=== PATIENT | female | born 1930 | race Caucasian/White ===

== ENCOUNTER 2017-04-24 16:06 | Emergency (ER) | payer MEDICARE, OTHER ==
[2017-04-24 16:30] VITALS: BP 142/38
--- NOTE | 2017-04-24 16:36 | EDM.PDOC ---
ED HPI GENERAL MEDICAL PROBLEM - General Chief Complaint: Abdominal Pain Stated Complaint: POSSIBLE BLADDER INFECTION Time Seen by Provider: 04/24/17 16:23 Source of Information: Reports: Patient History Limitations: Reports: No Limitations - History of Present Illness INITIAL COMMENTS - FREE TEXT/NARRATIVE: Patientt stated onset of frequency/urgency with inability to void last night. Has not voided since last night. C/O Low back pain and LLQ pain, slight suprapubic area pain. Denies bloody urine. Onset: Sudden Onset Date: 04/23/17 Onset Time: 21:00 Duration: Hour(s):, Constant, Getting Worse, Recurring Location: Reports: Back Quality: Reports: Burning, Stabbing Severity: Moderate Improves with: Reports: None Worsens with: Reports: None Associated Symptoms: Reports: No Other Symptoms. Denies: Chest Pain, Cough, Diaphoresis, Fever/Chills, Nausea/Vomiting, Shortness of Breath, Weakness Left Lower Abdomen Pain Score (Numeric/FACES): 8 - Related Data Allergies Allergy/AdvReac Type Severity Reaction Status Date / Time No Known Allergies Allergy Verified 04/24/17 16:24 Home Meds: Home Meds Aspirin [Ecotrin] 325 mg PO BIDMEALS 11/14/15 [History] Calcium Carbonate/Vitamin D3 [Calcium 600 + Vit D 200] 1 each PO DAILY 11/14/15 [History] Citalopram [Celexa] 40 mg PO DAILY 11/14/15 [History] Docusate Sodium [Colace] 100 mg PO BEDTIME PRN 11/14/15 [History] Lisinopril 10 mg PO DAILY 11/14/15 [History] [place]-3/DHA/Epa/Fish Oil [[place]-3 Fish Oil 1,000 MG Sfgl] 1 cap PO DAILY [History] Omeprazole [Prilosec] 40 mg PO DAILY 11/14/15 [History] Oxybutynin 5 mg PO TID PRN 11/14/15 [History] Polyethylene Glycol [Polyox Wsr-301] 1 gm PO DAILY PRN 11/14/15 [History] chlordiazePOXIDE/Clidinium [Librax 5-2.5 MG] 1 cap PO DAILY PRN 11/14/15 [ History] traZODone 100 mg PO BEDTIME 11/14/15 [History] Acetaminophen [Tylenol] 325 mg PO Q4HR PRN #100 tab 11/21/15 [Rx] Hydrocodone/Acetaminophen [Hydrocodon-Acetaminophen 5-325] 1 tab PO Q4HR PRN # 40 tablet 11/21/15 [Rx] Past Medical History HEENT History: Reports: Cataract Cardiovascular History: Reports: Hypertension Gastrointestinal History: Reports: Irritable Bowel Syndrome Musculoskeletal History: Reports: Osteoarthritis - Past Surgical History HEENT Surgical History: Reports: Cataract Surgery GI Surgical History: Reports: Colon, Hernia, Inguinal Musculoskeletal Surgical History: Reports: Hip Replacement Social & Family History - Tobacco Use Smoking Status *Q: Never Smoker - Alcohol Use Days Per Week of Alcohol Use: 0 - Recreational Drug Use Recreational Drug Use: No ED ROS GENERAL - Review of Systems Review Of Systems: See Below Constitutional: Reports: No Symptoms, Fever, Chills, Weakness, Diaphoresis HEENT: Reports: No Symptoms Respiratory: Reports: No Symptoms. Denies: Shortness of Breath, Cough, Sputum Cardiovascular: Reports: No Symptoms. Denies: Chest Pain, Dyspnea on Exertion Endocrine: Reports: No Symptoms GI/Abdominal: Reports: Abdominal Pain. Denies: Constipation, Diarrhea, Hematochezia, Melena, Nausea, Vomiting : Reports: Dysuria, Frequency, Pain, Urgency. Denies: Flank Pain, Hematuria Musculoskeletal: Reports: Back Pain, Other (low back pain left more than right) Skin: Reports: No Symptoms Neurological: Reports: No Symptoms Psychiatric: Reports: No Symptoms Hematologic/Lymphatic: Reports: No Symptoms Immunologic: Reports: No Symptoms ED EXAM, GI/ABD - Physical Exam Exam: See Below Exam Limited By: No Limitations General Appearance: Alert, WD/WN, No Apparent Distress Eyes: Bilateral: Normal Appearance, EOMI Ears: Normal External Exam, Normal Canal Nose: Normal Inspection Throat/Mouth: Normal Inspection, Normal Oropharynx Head: Atraumatic, Normocephalic Neck: Normal Inspection Respiratory/Chest: No Respiratory Distress, Lungs Clear, Normal Breath Sounds Cardiovascular: Normal Peripheral Pulses, Regular Rate, Rhythm, No Murmur GI/Abdominal Exam: Normal Bowel Sounds, Soft, No Organomegaly, No Distention, Other (mildly tender suprapubic and more tender LLQ) (Female) Exam: Deferred Rectal (Female) Exam: Deferred Back Exam: Normal Inspection, Paraspinal Tenderness, Other (Low back tenderness with percussion left more than right) Extremities: Normal Inspection, Normal Range of Motion Neurological: Alert, Oriented, Normal Cognition, Normal Gait, Other (walks with walker) Psychiatric: Normal Affect, Normal Mood Skin Exam: Warm, Dry, Intact, Normal Color, No Rash Lymphatic: No Adenopathy ED ABDOMINAL/GI PROCEDURES - Additional/Other Procedure(s) Procedure(s) (Free Text): Patient unable to void and states no urination since last night so straight cath done to empty bladder. Urine was pinkish red with no cloudiness or odor. Only 30 cc or so urine obtained with straight cath. Course - Vital Signs Last Recorded V/S: Last Vital Signs Temp 36.6 C 04/24/17 16:07 Pulse 62 04/24/17 16:07 Resp 16 04/24/17 16:07 BP 142/38 H 04/24/17 16:07 Pulse Ox - Orders/Labs/Meds Orders: Active Orders 24 hr Category Date Time Status Urinary Catheter Assessment [RC] ASDIRECTED Care 04/24/17 16:49 Active Urinary Catheter Insertion [Insert Urinary Catheter] [ Care 04/24/17 16:40 Ordered OM.PC] Q24H Abdomen Pelvis wo Cont [CT] Stat Exams 04/24/17 16:45 Taken Labs: Laboratory Tests 04/24/17 Range/Units 16:45 Urine Color Red H (YELLOW) Urine Appearance Turbid H (CLEAR) Urine pH 7.0 (5.0-8.0) Ur Specific [place] 1.020 Urine Protein >=300 H (NEGATIVE) mg/dL Urine Glucose (UA) Negative (NEGATIVE) mg/dL Urine Ketones Negative (NEGATIVE) mg/dL Urine Occult Blood Large H (NEGATIVE) Urine Nitrite Negative (NEGATIVE) Urine Bilirubin Negative (NEGATIVE) Urine Urobilinogen 0.2 (0.2) EU/dL Ur Leukocyte Esterase Small H (NEGATIVE) Urine RBC Packed (NOT SEEN) /HPF Urine Red Cell Clumps Present Urine WBC 0-5 (NOT SEEN) /HPF Ur Squamous Epith Cells Rare (NEGATIVE) /HPF Ur Renal Epithelial Cell Few H (NEGATIVE) /HPF Amorphous Sediment Few Urine Bacteria Rare (NEGATIVE) /HPF Urine Mucus Not seen (NEGATIVE) /LPF Meds: Medications Discontinued Medications Generic Name Dose Route Start Last Admin Trade Name Freq PRN Reason Stop Dose Admin Trimethoprim/Sulfamethoxazole 2 packet 04/24/17 19:18 04/24/17 19:35 Take Home: Sulfameth/Trimet 800-160mg, 2 Pack PO 04/24/17 19:19 2 packet ONETIME ONE Administration - Radiology Interpretation CT Results Date: 04/24/17 (CT showed bilar renal staghhorn caluli, left greater than right, no visualized hydronephrosis or ureteral calculi. Non specific scattered retroperitoneal fat stranding.) Departure - Departure Time of Disposition: 19:57 Disposition: Home, Self-Care 01 Condition: Good Clinical Impression: UTI (urinary tract infection) Qualifiers: Urinary tract infection type: acute cystitis Hematuria presence: with hematuria Qualified Code(s): N30.01 - Acute cystitis with hematuria - Discharge Information Instructions: Urinary Tract Infection, Adult, Laog-da-Cuto Referrals: Yesi Girard COAL CUTTER [Primary Care Provider] - Forms: ED Department Discharge Additional Instructions: Drink plenty of liquids. Take antibiotic twice daily. Use tylenol every 4-6 hours for pain. Return to ER if the pain gets worse, if you develop a fever, nausea or vomiting or are unable to urinate. See your regular doctor wednesday for follow up. - My Orders Last 24 Hours: My Active Orders 04/24/17 16:40 Urinary Catheter Insertion [Insert Urinary Catheter] [OM.PC] Q24H 04/24/17 16:45 Abdomen Pelvis wo Cont [CT] Stat 04/24/17 16:49 Urinary Catheter Assessment [RC] ASDIRECTED - Assessment/Plan Last 24 Hours: My Active Orders 04/24/17 16:40 Urinary Catheter Insertion [Insert Urinary Catheter] [OM.PC] Q24H 04/24/17 16:45 Abdomen Pelvis wo Cont [CT] Stat 04/24/17 16:49 Urinary Catheter Assessment [RC] ASDIRECTED
[2017-04-24] MEDS ORDERED: Take Home: Sulfamethoxazole/Trimethoprim 800-160 MG Tab, 2 Tab Pack PO ONE (19:18)
== END 2017-04-24 19:45 | disposition home or self-care (01) ==
LOC: VM.ED 16:06
DX: N30.01 Acute cystitis with hematuria (principal); I10 Essential (primary) hypertension; M19.90 Unspecified osteoarthritis, unspecified site; Z96.649 Presence of unspecified artificial hip joint; Z98.49 Cataract extraction status, unspecified eye; Z98.890 Other specified postprocedural states; Z79.899 Other long term (current) drug therapy
CPT/HCPCS: 74176; 81001; 99283; 99284; A9270

== ENCOUNTER 2018-06-15 11:02 | Emergency (ER) | payer MEDICARE, OTHER ==
[2018-06-15 11:40] VITALS: BP 145/49
--- NOTE | 2018-06-15 12:45 | EDM.PDOC ---
ED HPI GENERAL MEDICAL PROBLEM - General Chief Complaint: Laceration Source of Information: Reports: Patient, EMS History Limitations: Reports: No Limitations Right Lower Leg Pain Score (Numeric/FACES): 5 - Related Data Allergies Allergy/AdvReac Type Severity Reaction Status Date / Time aspirin AdvReac Nausea Verified 06/15/18 11:40 Home Meds: Home Meds Calcium Carbonate/Vitamin D3 [Calcium 600 + Vit D 200] 1 each PO DAILY 11/14/15 [History] Citalopram [Celexa] 40 mg PO DAILY 11/14/15 [History] Docusate Sodium [Colace] 100 mg PO BEDTIME PRN 11/14/15 [History] [place]-3/DHA/Epa/Fish Oil [[place]-3 Fish Oil 1,000 MG Sfgl] 1 cap PO DAILY [History] Oxybutynin 5 mg PO DAILY 11/14/15 [History] Polyethylene Glycol [Polyox Wsr-301] 1 gm PO DAILY PRN 11/14/15 [History] chlordiazePOXIDE/Clidinium [Librax 5-2.5 MG] 1 cap PO DAILY PRN 11/14/15 [ History] traZODone 100 mg PO BEDTIME 11/14/15 [History] Acetaminophen [Tylenol] 325 mg PO Q4HR PRN #100 tab 11/21/15 [Rx] Past Medical History HEENT History: Reports: Cataract Cardiovascular History: Reports: Hypertension Gastrointestinal History: Reports: Irritable Bowel Syndrome Musculoskeletal History: Reports: Osteoarthritis Psychiatric History: Reports: Depression - Past Surgical History HEENT Surgical History: Reports: Cataract Surgery GI Surgical History: Reports: Colon, Hernia, Inguinal Female Surgical History: Reports: Hysterectomy, Other (See Below) Other Female Surgeries/Procedures: ?partial colectomy Musculoskeletal Surgical History: Reports: Hip Replacement Social & Family History - Family History Family Medical History: Noncontributory - Tobacco Use Smoking Status *Q: Never Smoker - Caffeine Use Caffeine Use: Reports: Coffee - Recreational Drug Use Recreational Drug Use: No Course - Vital Signs Last Recorded V/S: Last Vital Signs Temp 36.4 C 06/15/18 11:36 Pulse 62 06/15/18 11:36 Resp 18 06/15/18 11:36 BP 145/49 H 06/15/18 11:36 Pulse Ox 95 06/15/18 11:36 Departure - Discharge Information Instructions: Skin Tear Care, Eegb-da-Oeyp, Laceration Care, Adult Forms: ED Department Discharge Additional Instructions: Keep area dry for 48 hours. Return to ER or follow-up in ER if increased redness, swelling, or discharge.
--- NOTE | 2018-06-15 18:24 | EDM.PDOC ---
ED HPI GENERAL MEDICAL PROBLEM - General Chief Complaint: Laceration Time Seen by Provider: 06/15/18 11:30 Source of Information: Reports: Patient History Limitations: Reports: No Limitations - History of Present Illness INITIAL COMMENTS - FREE TEXT/NARRATIVE: Pt. presents to ER with complaints of a laceration to R anterior lower leg. She states that she thinks she cut it on her chair. Denies any other injury. She is not anticoagulated. Tetanus is UTD. Right Lower Leg Pain Score (Numeric/FACES): 5 - Related Data Allergies Allergy/AdvReac Type Severity Reaction Status Date / Time aspirin AdvReac Nausea Verified 06/15/18 11:40 Home Meds: Home Meds Calcium Carbonate/Vitamin D3 [Calcium 600 + Vit D 200] 1 each PO DAILY 11/14/15 [History] Citalopram [Celexa] 40 mg PO DAILY 11/14/15 [History] Docusate Sodium [Colace] 100 mg PO BEDTIME PRN 11/14/15 [History] [place]-3/DHA/Epa/Fish Oil [[place]-3 Fish Oil 1,000 MG Sfgl] 1 cap PO DAILY [History] Oxybutynin 5 mg PO DAILY 11/14/15 [History] Polyethylene Glycol [Polyox Wsr-301] 1 gm PO DAILY PRN 11/14/15 [History] chlordiazePOXIDE/Clidinium [Librax 5-2.5 MG] 1 cap PO DAILY PRN 11/14/15 [ History] traZODone 100 mg PO BEDTIME 11/14/15 [History] Acetaminophen [Tylenol] 325 mg PO Q4HR PRN #100 tab 11/21/15 [Rx] Past Medical History HEENT History: Reports: Cataract Cardiovascular History: Reports: Hypertension Gastrointestinal History: Reports: Irritable Bowel Syndrome Musculoskeletal History: Reports: Osteoarthritis Psychiatric History: Reports: Depression - Past Surgical History HEENT Surgical History: Reports: Cataract Surgery GI Surgical History: Reports: Colon, Hernia, Inguinal Female Surgical History: Reports: Hysterectomy, Other (See Below) Other Female Surgeries/Procedures: ?partial colectomy Musculoskeletal Surgical History: Reports: Hip Replacement Social & Family History - Family History Family Medical History: Noncontributory - Tobacco Use Smoking Status *Q: Never Smoker - Caffeine Use Caffeine Use: Reports: Coffee - Recreational Drug Use Recreational Drug Use: No ED ROS GENERAL - Review of Systems Review Of Systems: ROS reveals no pertinent complaints other than HPI. Musculoskeletal: Reports: Leg Pain ED EXAM, GENERAL - Physical Exam Exam: See Below Exam Limited By: No Limitations General Appearance: Alert, WD/WN, No Apparent Distress Extremities: Other (5 cm crescent shaped laceration to R lower leg) ED GENERAL MEDICAL PROCEDURES - Additional/Other Procedure(s) Other (Free Text) Procedure(s): 5 cm laceration, cleansed with NS and chlorhexidine. Skin was closed with dermabond. Course - Vital Signs Last Recorded V/S: Last Vital Signs Temp 36.4 C 06/15/18 11:36 Pulse 62 06/15/18 11:36 Resp 18 06/15/18 11:36 BP 145/49 H 06/15/18 11:36 Pulse Ox 95 06/15/18 11:36 Departure - Departure Time of Disposition: 12:46 Disposition: Home, Self-Care 01 Clinical Impression: Laceration - Discharge Information Instructions: Skin Tear Care, [id number], Laceration Care, Adult Referrals: Adeline Caicedo CAR RIDER [Primary Care Provider] - Forms: ED Department Discharge Additional Instructions: Keep area dry for 48 hours. Return to ER or follow-up in ER if increased redness, swelling, or discharge.
== END 2018-06-15 12:46 | disposition home or self-care (01) ==
LOC: VM.ED 11:02
DX: S81.811A Laceration without foreign body, right lower leg, initial encounter (principal); I10 Essential (primary) hypertension; Z88.8 Allergy status to other drugs, medicaments and biological substances; Z79.899 Other long term (current) drug therapy; W22.8XXA Striking against or struck by other objects, initial encounter
CPT/HCPCS: 12002; 99283; 99283-GF-25

== ENCOUNTER 2019-02-10 11:05 | Emergency (ER) | payer MEDICARE, OTHER ==
[2019-02-10] MEDS ORDERED: Lidocaine 1% 30 ML SDV INJECT ONE (11:17)
[2019-02-10 11:22] VITALS: BP 95/62
--- NOTE | 2019-02-10 12:01 | CR ---
[id number] RAD/RAD Elbow Right 3V Min Exam: RAD Elbow Right 3V Min Indication:FALL,STUCK ELBOW,11 CM LACERATION. Comparison: No prior imaging for comparison. Discussion: Large soft tissue laceration along the posterior aspect of the forearm and elbow. Numerous hyperdense foci within the remaining soft tissues at the laceration site are likely foreign bodies. No fracture or dislocation. Advanced osteoarthritis of the radiocapitellar and ulnotrochlear articulations, including numerous osteochondral bodies throughout the joint space. Impression: As above. Joaquin Gastelum MD 02/10/19 [id number] Thank you for allowing us to participate in the care of your patient.
[2019-02-10] MEDS ORDERED: Acetaminophen/HYDROcodone 325-5 MG Tab PO ONE (12:08)
--- NOTE | 2019-02-10 15:03 | EDM.PDOC ---
ED HPI GENERAL MEDICAL PROBLEM - General Chief Complaint: Upper Extremity Injury/Pain Stated Complaint: fall, elbow/forearm injury Time Seen by Provider: 02/10/19 11:05 Source of Information: Reports: Patient, EMS History Limitations: Reports: No Limitations - History of Present Illness INITIAL COMMENTS - FREE TEXT/NARRATIVE: Pt. states that she "lost control" of her walker and feel, landing on her R elbow and sustaining a severe laceration. Pt. states that she did not strike her head. No neck pain. She states that her discomfort is isolated to her R elbow. Denies any numbness/tingling to the extremity. She states that her tetanus is UTD. Pt. states that she lives in [facility] by herself. She states that she was walking [facility] [employer] when the accident happened. Onset: Today Onset Date: 02/10/19 Location: Reports: Upper Extremity, Right Quality: Reports: Burning, Sharp, Throbbing Improves with: Reports: Rest Worsens with: Reports: Movement Right Arm Pain Score (Numeric/FACES): 3 - Related Data Allergies Allergy/AdvReac Type Severity Reaction Status Date / Time aspirin AdvReac Nausea Verified 06/15/18 11:40 Home Meds: Home Meds Calcium Carbonate/Vitamin D3 [Calcium 600 + Vit D 200] 1 each PO DAILY 11/14/15 [History] Citalopram [Celexa] 40 mg PO DAILY 11/14/15 [History] Docusate Sodium [Colace] 100 mg PO BEDTIME PRN 11/14/15 [History] [place]-3/DHA/Epa/Fish Oil [[place]-3 Fish Oil 1,000 MG Sfgl] 1 cap PO DAILY [History] Oxybutynin 5 mg PO DAILY 11/14/15 [History] Polyethylene Glycol [Polyox Wsr-301] 1 gm PO DAILY PRN 11/14/15 [History] chlordiazePOXIDE/Clidinium [Librax 5-2.5 MG] 1 cap PO DAILY PRN 11/14/15 [ History] traZODone 100 mg PO BEDTIME 11/14/15 [History] Acetaminophen [Tylenol] 325 mg PO Q4HR PRN #100 tab 11/21/15 [Rx] Past Medical History HEENT History: Reports: Cataract Cardiovascular History: Reports: Hypertension Gastrointestinal History: Reports: Irritable Bowel Syndrome Musculoskeletal History: Reports: Osteoarthritis Psychiatric History: Reports: Depression - Past Surgical History HEENT Surgical History: Reports: Cataract Surgery GI Surgical History: Reports: Colon, Hernia, Inguinal Female Surgical History: Reports: Hysterectomy, Other (See Below) Other Female Surgeries/Procedures: ?partial colectomy Musculoskeletal Surgical History: Reports: Hip Replacement Social & Family History - Family History Family Medical History: Noncontributory - Tobacco Use Smoking Status *Q: Never Smoker - Caffeine Use Caffeine Use: Reports: Coffee Review of Systems - Review of Systems Review Of Systems: See Below Constitutional: Reports: No Symptoms Eyes: Reports: No Symptoms Ears: Reports: No Symptoms Nose: Reports: No Symptoms Mouth/Throat: Reports: No Symptoms Respiratory: Reports: No Symptoms Cardiovascular: Reports: No Symptoms GI/Abdominal: Reports: No Symptoms Genitourinary: Reports: No Symptoms Musculoskeletal: Reports: Other (approx. 11 cm to R elbow) Skin: Reports: No Symptoms Neurological: Reports: No Symptoms Psychiatric: Reports: No Symptoms ED EXAM, GENERAL - Physical Exam Exam: See Below Exam Limited By: No Limitations General Appearance: Alert, WD/WN, No Apparent Distress Nose: Normal Inspection, No Blood Throat/Mouth: Normal Inspection, Normal Lips, Normal Teeth, Normal Gums, Normal Oropharynx Head: Atraumatic, Normocephalic Neck: Normal Inspection, Supple, Non-Tender Respiratory/Chest: No Respiratory Distress, Lungs Clear, Normal Breath Sounds, No Accessory Muscle Use, Chest Non-Tender Cardiovascular: Normal Peripheral Pulses, Regular Rate, Rhythm, No Edema, No JVD Peripheral Pulses: 4+: Radial (L), Radial (R) GI/Abdominal: Soft, Non-Tender, No Organomegaly, No Distention (Female) Exam: Deferred Rectal (Female) Exam: Deferred Back Exam: Normal Inspection, Full Range of Motion Extremities: Other (11 cm laceration to R posterior elbow. It extends deeply into adipose tissue. No obvious bony deformity noted. Does not extend into deeper structures.) Neurological: Alert, Oriented, CN II-XII Intact, Normal Cognition, Normal Gait, Normal Reflexes Psychiatric: Normal Affect, Normal Mood Skin Exam: Warm, Dry, Intact, Normal Color, No Rash Lymphatic: No Adenopathy ED TRAUMA EXTREMITY PROCEDURES - Laceration/Wound Repair Right Posterior Elbow Lac/Wound Length In cm: 11 Appearance: Subcutaneous, Irregular, Heavily Contaminated Distal NVT: Neuro & Vascular Intact, No Tendon Injury Anesthetic Type: Local Local Anesthesia - Lidocaine (Xylocaine): 1% Plain Local Anesthetic Volume: Other (13) Skin Prep: Chlorhexidine (Hibiciens), Saline Saline Irrigation (cc's): 1,500 Exploration/Debridement/Repair: Wound Explored, Moderate Debridement, Foreign Material Removed, Multiple Flaps Aligned Closed With: [place] # of Sutures: 15 Suture Size: 3-0 # of Sutures: 2 Repaired With: Vicryl Sterile Dressing Applied: Nurse Progress/Comments: total of 1500ml of NS was used to irrigate the laceration. There was some debris in the laceration that was flushed out. 2 subcuticular sutures were placed and a total of 15 skin surinder was used to close the skin. Pt. tolerated the procedure well. Course - Vital Signs Last Recorded V/S: Last Vital Signs Temp 36.7 C 02/10/19 11:05 Pulse 60 02/10/19 11:05 Resp 20 02/10/19 11:05 BP 95/62 02/10/19 11:05 Pulse Ox 99 02/10/19 11:05 - Orders/Labs/Meds Meds: Medications Discontinued Medications Generic Name Dose Route Start Last Admin Trade Name Adam PRN Reason Stop Dose Admin Hydrocodone Bitart/Acetaminophen 1 tab 02/10/19 12:08 02/10/19 12:12 [place] 325-5 Mg PO 02/10/19 12:09 1 tab ONETIME ONE Administration Lidocaine HCl 30 ml 02/10/19 11:17 02/10/19 11:29 Xylocaine-Mpf 1% INJECT 02/10/19 11:18 30 ml ONETIME ONE Administration Departure - Departure Time of Disposition: 14:00 Disposition: Home, Self-Care 01 Clinical Impression: Laceration - Discharge Information Instructions: Acetaminophen; Hydrocodone tablets or capsules, Laceration Care, Adult, Cephalexin tablets or capsules Referrals: Adeline Caicedo NP [Primary Care Provider] - Forms: ED Department Discharge Additional Instructions: Keflex 500mg 1 tab 4 times daily for 10 days [place] 5/325mg 1 every 4-6 hours as needed for pain Return to ER Wednesday afternoon for a dressing change. Keep dressing on until then. Return to ER if you have increased pain, discharge, or redness to the area. - Assessment/Plan Plan: Keflex 500mg 1 tab 4 times daily for 10 days [place] 5/325mg 1 every 4-6 hours as needed for pain Return to ER Wednesday afternoon for a dressing change. Keep dressing on until then. Return to ER if you have increased pain, discharge, or redness to the area.
== END 2019-02-10 12:54 | disposition home or self-care (01) ==
LOC: VM.ED 11:05
DX: S51.011A Laceration without foreign body of right elbow, initial encounter (principal); I10 Essential (primary) hypertension; M19.90 Unspecified osteoarthritis, unspecified site; F32.9 Major depressive disorder, single episode, unspecified; Z98.49 Cataract extraction status, unspecified eye; Z90.710 Acquired absence of both cervix and uterus; Z79.899 Other long term (current) drug therapy; W19.XXXA Unspecified fall, initial encounter
CPT/HCPCS: 12004; 12034; 73080; 99283; 99284; A9270; J2001

== ENCOUNTER 2019-09-28 08:16 | Inpatient (IN) | payer MEDICARE, OTHER ==
[2019-09-28] MEDS ORDERED: traZODone 50 MG Tab PO SCH (20:00)
[2019-09-28] MEDS ORDERED: Oxybutynin 5 MG Tab PO SCH (20:00)
[2019-09-28] MEDS: traZODone 50 MG Tab PO SCH (20:03)
[2019-09-28] MEDS: Cephalexin 500 MG Cap PO SCH (20:03)
[2019-09-28] MEDS: Acetaminophen 325 MG Tab PO PRN (20:03)
[2019-09-29] MEDS ORDERED: Sertraline 100 MG Tab PO SCH (08:00)
[2019-09-29] MEDS: Sertraline 50 MG Tab PO SCH (08:28)
[2019-09-29] MEDS: Calcium Carbonate/Vitamin D3 1250 MG-200 Unit Tab PO SCH (08:28)
[2019-09-29] MEDS: Furosemide 20 MG Tab PO SCH (08:28)
[2019-09-29] MEDS: Cephalexin 500 MG Cap PO SCH ×2 (08:28→19:37)
[2019-09-29] MEDS: Mirabegron 25 MG Tab Extended Release PO SCH (12:24)
--- NOTE | 2019-09-29 15:01 | HP ---
CHIEF COMPLAINT: 1. Weakness. 2. Deconditioning. HISTORY OF PRESENT ILLNESS: This is an 89-year-old female patient who was seen at the [facility] a few days ago for what was thought to be a cellulitis, frequent falling, weakness. The patient was subsequently transferred to [facility] in [place] for further workup of her symptoms. While in the hospital, the patient was given vancomycin and Zosyn for her cellulitis, however, this was changed to p.o. cephalexin on date of discharge. No acute etiology was found for the patient's symptoms. However, she remained weak and deconditioned; therefore, she is being sent to the swing bed unit at [facility] for further rehab. PAST MEDICAL HISTORY: 1. Cataracts. 2. Hypertension. 3. Irritable bowel syndrome. 4. Osteoarthritis. 5. Depression. PAST SURGICAL HISTORY: 1. Cataract surgery. 2. Inguinal hernia repair. 3. Hysterectomy. 4. Partial colectomy. 5. Hip replacement. FAMILY HISTORY: Noncontributory. SOCIAL HISTORY: The patient does not smoke cigarettes or drink any alcohol. The patient is . REVIEW OF SYSTEMS: General: The patient reports weakness and feeling very fatigued. Pulmonary: The patient denies any shortness of breath or cough. Cardiovascular: Negative. Musculoskeletal: Weakness. Neurological: Negative. PHYSICAL EXAMINATION: General Presentation: The patient is alert and oriented. The patient is cooperative. Pulmonary: Clear to auscultation. Normal respiratory effort. Cardiovascular: Regular rate and rhythm. No murmur. Musculoskeletal: Active range of motion. Skin: Warm, dry, and intact. Neurologic: The patient is alert and oriented x3, sensation is intact. ADMITTING LABS: None. IMAGING STUDIES: None. ASSESSMENT: 1. Cellulitis. 2. Weakness. 3. Deconditioning. 4. Hypertension. 5. Irritable bowel syndrome. 6. Osteoarthritis. 7. Depression. PLAN: An 89-year-old patient with a past medical history of hypertension, irritable bowel syndrome, osteoarthritis, and depression, who is admitted to the swing bed unit at [facility] for continued treatment of cellulitis, weakness, deconditioning. The patient is a code 2. The patient does wish to be transferred to a higher level of care should the need arise. DVT prophylaxis with early ambulation. We will consult PT for her weakness and deconditioning. We will involve Case Management for discharge planning. We will continue the same medications at home without any changes. Note: This patient was seen and examined by me as an [facility] provider. TB: 09/28/2019 12:00:27 MODL: 09/28/2019 17:44:44 /[id number]
[2019-09-29] MEDS: Acetaminophen 325 MG Tab PO PRN (19:37)
[2019-09-29] MEDS: traZODone 50 MG Tab PO SCH (19:37)
[2019-09-30] MEDS: Furosemide 20 MG Tab PO SCH (08:36)
[2019-09-30] MEDS: Cephalexin 500 MG Cap PO SCH ×2 (08:36→19:58)
[2019-09-30] MEDS: Sertraline 50 MG Tab PO SCH (08:36)
[2019-09-30] MEDS: Calcium Carbonate/Vitamin D3 1250 MG-200 Unit Tab PO SCH (08:36)
[2019-09-30] MEDS: Mirabegron 25 MG Tab Extended Release PO SCH (08:37)
[2019-09-30] MEDS: traZODone 50 MG Tab PO SCH (19:58)
[2019-10-01] MEDS: Mirabegron 25 MG Tab Extended Release PO SCH (08:06)
[2019-10-01] MEDS: Furosemide 20 MG Tab PO SCH (08:06)
[2019-10-01] MEDS: Calcium Carbonate/Vitamin D3 1250 MG-200 Unit Tab PO SCH (08:06)
[2019-10-01] MEDS: Cephalexin 500 MG Cap PO SCH ×2 (08:06→20:44)
[2019-10-01] MEDS: Sertraline 50 MG Tab PO SCH (08:06)
[2019-10-01] MEDS: traZODone 50 MG Tab PO SCH (20:44)
[2019-10-02] MEDS: Calcium Carbonate/Vitamin D3 1250 MG-200 Unit Tab PO SCH (08:23)
[2019-10-02] MEDS: Polyethylene Glycol 3350 Powder 17 GM Packet PO PRN ×2 (08:23→19:46)
[2019-10-02] MEDS: Furosemide 20 MG Tab PO SCH (08:23)
[2019-10-02] MEDS: Sertraline 50 MG Tab PO SCH (08:23)
[2019-10-02] MEDS: Mirabegron 25 MG Tab Extended Release PO SCH (08:40)
[2019-10-02] MEDS: traZODone 50 MG Tab PO SCH (19:46)
[2019-10-03] MEDS: Mirabegron 25 MG Tab Extended Release PO SCH (07:36)
[2019-10-03] MEDS: Sertraline 50 MG Tab PO SCH (07:36)
[2019-10-03] MEDS: Calcium Carbonate/Vitamin D3 1250 MG-200 Unit Tab PO SCH (07:36)
[2019-10-03] MEDS: Furosemide 20 MG Tab PO SCH (07:36)
[2019-10-03] MEDS: traZODone 50 MG Tab PO SCH (19:31)
[2019-10-04] MEDS: Mirabegron 25 MG Tab Extended Release PO SCH (08:19)
[2019-10-04] MEDS: Sertraline 50 MG Tab PO SCH (08:19)
[2019-10-04] MEDS: Furosemide 20 MG Tab PO SCH (08:19)
[2019-10-04] MEDS: Calcium Carbonate/Vitamin D3 1250 MG-200 Unit Tab PO SCH (08:19)
[2019-10-04] MEDS: traZODone 50 MG Tab PO SCH (19:25)
[2019-10-04] MEDS: Polyethylene Glycol 3350 Powder 17 GM Packet PO PRN (20:27)
[2019-10-05] MEDS: Mirabegron 25 MG Tab Extended Release PO SCH (08:15)
[2019-10-05] MEDS: Furosemide 20 MG Tab PO SCH (08:15)
[2019-10-05] MEDS: Calcium Carbonate/Vitamin D3 1250 MG-200 Unit Tab PO SCH (08:15)
[2019-10-05] MEDS: Sertraline 50 MG Tab PO SCH (08:15)
[2019-10-05] MEDS: traZODone 50 MG Tab PO SCH (19:37)
[2019-10-06] MEDS: Furosemide 20 MG Tab PO SCH (08:00)
[2019-10-06] MEDS: Sertraline 50 MG Tab PO SCH (08:00)
[2019-10-06] MEDS: Mirabegron 25 MG Tab Extended Release PO SCH (08:00)
[2019-10-06] MEDS: Calcium Carbonate/Vitamin D3 1250 MG-200 Unit Tab PO SCH (08:00)
[2019-10-06] MEDS: traZODone 50 MG Tab PO SCH (19:27)
[2019-10-07] MEDS: Calcium Carbonate/Vitamin D3 1250 MG-200 Unit Tab PO SCH (08:47)
[2019-10-07] MEDS: Sertraline 50 MG Tab PO SCH (08:47)
[2019-10-07] MEDS: Polyethylene Glycol 3350 Powder 17 GM Packet PO PRN (08:47)
[2019-10-07] MEDS: Mirabegron 25 MG Tab Extended Release PO SCH (08:47)
[2019-10-07] MEDS: Furosemide 20 MG Tab PO SCH (08:47)
[2019-10-07] MEDS: traZODone 50 MG Tab PO SCH (21:26)
[2019-10-08] MEDS: Sertraline 50 MG Tab PO SCH (09:07)
[2019-10-08] MEDS: Calcium Carbonate/Vitamin D3 1250 MG-200 Unit Tab PO SCH (09:07)
[2019-10-08] MEDS: Furosemide 20 MG Tab PO SCH (09:08)
[2019-10-08] MEDS: Mirabegron 25 MG Tab Extended Release PO SCH (09:14)
[2019-10-08] MEDS: traZODone 50 MG Tab PO SCH (19:43)
[2019-10-09 05:31] VITALS: BP 154/62; PULSE 64
[2019-10-09] MEDS: Mirabegron 25 MG Tab Extended Release PO SCH (07:27)
[2019-10-09] MEDS: Calcium Carbonate/Vitamin D3 1250 MG-200 Unit Tab PO SCH (07:27)
[2019-10-09] MEDS: Sertraline 50 MG Tab PO SCH (07:27)
[2019-10-09] MEDS: Furosemide 20 MG Tab PO SCH (07:27)
--- NOTE | 2019-10-13 09:54 | PCM.DCSUM1 ---
Discharge Summary - Hospital Course Free Text/Narrative:: 89 year old female admitted to swing bed for continued therapy for diagnosis of recurrent falls, generalized debility. Patient has underlying primary osteoarthritis of both knees. this may be contributing to falls as well Diagnosis: Stroke: No - Discharge Data Discharge Date: 10/09/19 Discharge Disposition: Home, W Home Health Agency 06 Condition: Good - Referral to Home Health Date of Face to Face Encounter: 10/08/19 Reason for Homebound Status: Generalized debility related to deconditioning Primary Care Physician: Adeline Caicedo NP Skilled Need: Home physical therapy - Discharge Diagnosis/Problem(s) (1) Debility SNOMED Code(s): 18588302 ICD Code: R53.81 - OTHER MALAISE Status: Acute (2) Hypertension SNOMED Code(s): 19177392 ICD Code: I10 - ESSENTIAL (PRIMARY) HYPERTENSION Status: Chronic (3) Osteoarthritis of knees, bilateral SNOMED Code(s): 782829540107552 ICD Code: M17.0 - BILATERAL PRIMARY OSTEOARTHRITIS OF KNEE Status: Chronic Qualifiers: Osteoarthritis type: primary Qualified Code(s): M17.0 - Bilateral primary osteoarthritis of knee (4) Status post hip replacement SNOMED Code(s): 339530185, 494876276, 359331765, 488484428 ICD Code: Z96.649 - PRESENCE OF UNSPECIFIED ARTIFICIAL HIP JOINT Status: Chronic Priority: Low Qualifiers: Laterality: right Qualified Code(s): Z96.641 - Presence of right artificial hip joint (5) Overactive bladder SNOMED Code(s): 208920478 ICD Code: N32.81 - OVERACTIVE BLADDER Status: Chronic - Patient Summary/Data Consults: Consultations 09/28/19 10:57 PT Evaluation and Treatment [CONS] Routine 09/28/19 11:52 Consult to Case Management/Marketing Database Coordinator [CONS] Routine 09/29/19 10:36 OT Evaluation and Treatment [CONS] Routine Hospital Course: 89 year old admitted to swing bed following an acute stay at [facility] in [place]. Pt was treated there for cellulitis. Pt also with recurrent falls, generalized debility. Has underlying OA of both knees and is s/p hip replacement for the same. Swing bed course was unremarkable. She participated in both physical as well as occupational therapy. Short term goals to allow for discharge were met. However it was felt patient would benefit from continued therapy at home to work towards long term care pharmacist goals. Patient did fall the day prior to discharge. She did not sustain any injuries. States she "reached too far without moving my feet." - Patient Instructions Diet: Regular Diet as Tolerated Driving: Do Not Drive Showering/Bathing: May Shower - Discharge Plan *PRESCRIPTION DRUG MONITORING PROGRAM REVIEWED*: No Prescriptions/Med Rec: Mirabegron [Myrbetriq] 25 mg PO DAILY 30 Days tab.er Sertraline [Zoloft] 150 mg PO DAILY #90 tablet Home Medications: Home Meds traZODone 50 mg PO BEDTIME 11/14/15 [History] Mirabegron [Myrbetriq] 25 mg PO DAILY 09/28/19 [History] Acetaminophen [Tylenol] 650 mg PO Q4HR PRN tablet 10/08/19 [Rx] Calcium Carbonate/Vitamin D3 [Calcium Carbonate/Vitamin D 1250 MG-200 Unit] 1 tab PO DAILY tablet 10/08/19 [Rx] Docusate Sodium/Sennosides [Senna Plus] 1 tab PO DAILY tablet 10/08/19 [Rx] Furosemide [Lasix] 20 mg PO DAILY tablet 10/08/19 [Rx] Mirabegron [Myrbetriq] 25 mg PO DAILY 30 Days tab.er 10/08/19 [Rx] Sertraline [Zoloft] 150 mg PO DAILY #90 tablet 10/08/19 [Rx] polyethylene glycoL 3350 [MiraLAX] 17 gm PO BID PRN packet 10/08/19 [Rx] Patient Handouts: Cellulitis, Adult, Dpir-yc-Naen - Discharge Summary/Plan Comment DC Time >30 min.: No Discharge Summary/Plan Comment: Patient will be discharged home - will be living in [facility] facility. Home Health Pt /OT have been ordered Medications per reconciliation Follow up in clinic in 2 weeks. I certify that Eli Yusuf is under my care and that I had a [id number] encounter that meets the physician [id number] requirements on 10/08/2019 The encounter with the patient was in whole or in part for the following medical condition OA bilateral knees, frequent falls, generalized debilityu My clinical findings support the need for the services because of the patient's inability to safely get to an outpatient facility for therapy. The patient has an elevated fall risk, weakness, as well as related to medical conditions. Further, I certify that my clinical findings support that this patient is homebound because this patient is unable to safely ambulate distances greater than 20 feet. The patient experiences pain and requires frequent wet rest periods due to weakness. The patient also requires the use of assistive devices to ambulate and requires assistance of another person to leave home. I certify that Eli meets the homebound requirements for the payer source and has a need for intermittent half-way, physical therapy and/or speech or occupational therapy services in the home for the diagnoses currently outlined in the initial plan of care. These services will continue to be monitored by myself. I will periodically review and update plan of care is required. - Patient Data Vitals - Most Recent: Last Vital Signs Temp 36.3 C 10/09/19 05:29 Pulse 64 10/09/19 05:29 Resp 18 10/09/19 05:29 BP 154/62 H 10/09/19 05:29 Pulse Ox 99 10/09/19 05:29 Weight - Most Recent: 78.199 kg Med Orders - Current: Current Medications Discontinued Medications Acetaminophen (Tylenol) 650 mg PO Q4HR PRN PRN Reason: Pain (mild 1-3) Last Admin: 09/29/19 19:37 Dose: 650 mg Bupropion HCl (Wellbutrin) 75 mg PO BID [facility] Calcium Carbonate (Calcium Carbonate/Vitamin D 1250 Mg-200 Unit) 1 tab PO DAILY [facility] Last Admin: 10/09/19 07:27 Dose: 1 tab Cephalexin (Keflex) 500 mg PO BID [facility] Stop: 10/01/19 20:01 Last Admin: 10/01/19 20:44 Dose: 500 mg Furosemide (Lasix) 20 mg PO DAILY [facility] Last Admin: 10/09/19 07:27 Dose: 20 mg Mirabegron (Myrbetriq) 25 mg PO DAILY [facility] Last Admin: 10/09/19 07:27 Dose: 25 mg Oxybutynin Chloride (Oxybutynin) 5 mg PO BID [facility] Polyethylene Glycol (Miralax) 17 gm PO BID PRN PRN Reason: Constipation Last Admin: 10/07/19 08:47 Dose: 17 gm Senna/Docusate Sodium (Senna Plus) 1 tab PO DAILY [facility] Last Admin: 10/09/19 07:27 Dose: 1 tab Sertraline HCl (Zoloft) 100 mg PO DAILY [facility] Sertraline HCl (Zoloft) 150 mg PO DAILY [facility] Last Admin: 10/09/19 07:27 Dose: 150 mg Trazodone HCl (Trazodone) 100 mg PO BEDTIME [facility] Trazodone HCl (Trazodone) 50 mg PO BEDTIME [facility] Last Admin: 10/08/19 19:43 Dose: 50 mg
== END 2019-10-09 10:00 | disposition home health service (06) | DRG 603 ==
LOC: VM.MS 11:42
PROVIDERS: ADMIT Nurse Practitioner Family; ATTEND Nurse Practitioner Family
DX: L03.90 Cellulitis, unspecified (principal); R53.1 Weakness; I10 Essential (primary) hypertension; K58.9 Irritable bowel syndrome, unspecified; M19.90 Unspecified osteoarthritis, unspecified site; Z96.649 Presence of unspecified artificial hip joint; F32.9 Major depressive disorder, single episode, unspecified; Z98.49 Cataract extraction status, unspecified eye; Z90.710 Acquired absence of both cervix and uterus
CPT/HCPCS: 97110-GO; 97110-GP; 97116-GP; 97161-GP; 97165-GO; 97530-GP; A9270-GY

== ENCOUNTER 2020-04-29 14:22 | Emergency (ER) | payer MEDICARE, OTHER ==
[2020-04-29] MEDS ORDERED: Sodium Chloride 0.9% 10 ML Syringe FLUSH PRN (14:58)
--- NOTE | 2020-04-29 15:05 | EDM.PDOC ---
ED HPI GENERAL MEDICAL PROBLEM - General Chief Complaint: General Stated Complaint: ER Time Seen by Provider: 04/29/20 14:25 Source of Information: Reports: Patient History Limitations: Reports: No Limitations - History of Present Illness INITIAL COMMENTS - FREE TEXT/NARRATIVE: Pt. presents to ER with complaints of fall. She is a resident at [facility]. She states that she is "not sure what happened, but it happened fast" and sounds like it was a mechanical fall. Denies any LOC. She remembers the entire event. Denies any use of blood thinners. Denies any chest pain, shortness of breath, lightheadedness, palpitations, or other worrisome signs/symptoms prior to the fall. Her only complaint today is of some R orbital pain/swelling. Denies any headache. Onset Date: 04/29/20 Location: Reports: Head Face/Facial Pain Score (Numeric/FACES): 8 - Related Data Allergies Allergy/AdvReac Type Severity Reaction Status Date / Time aspirin AdvReac Unknown Unknown Verified 04/29/20 14:31 Home Meds: Home Meds traZODone 100 mg PO BEDTIME 11/14/15 [History] Mirabegron [Myrbetriq] 25 mg PO DAILY 09/28/19 [History] Acetaminophen [Tylenol] 650 mg PO Q4HR PRN tablet 10/08/19 [Rx] Calcium Carbonate/Vitamin D3 [Calcium Carbonate/Vitamin D 1250 MG-200 Unit] 1 tab PO DAILY tablet 10/08/19 [Rx] Docusate Sodium/Sennosides [Senna Plus] 1 tab PO DAILY tablet 10/08/19 [Rx] Furosemide [Lasix] 20 mg PO DAILY tablet 10/08/19 [Rx] Mirabegron [Myrbetriq] 25 mg PO DAILY 30 Days tab.er 10/08/19 [Rx] Sertraline [Zoloft] 150 mg PO DAILY #90 tablet 10/08/19 [Rx] Folic Acid 1 mg PO DAILY 04/29/20 [History] Trospium [Sanctura] 20 mg PO BEDTIME 04/29/20 [History] buPROPion [Wellbutrin] 75 mg PO BEDTIME 04/29/20 [History] polyethylene glycoL 3350 [MiraLAX] 17 gm PO BID 04/29/20 [History] Past Medical History HEENT History: Reports: Cataract Cardiovascular History: Reports: Hypertension Gastrointestinal History: Reports: Irritable Bowel Syndrome Genitourinary History: Reports: Other (See Below) Other Genitourinary History: overactive bladder Musculoskeletal History: Reports: Osteoarthritis Psychiatric History: Reports: Depression Endocrine/Metabolic History: Reports: Obesity/BMI 30+ - Past Surgical History HEENT Surgical History: Reports: Cataract Surgery, Tonsillectomy GI Surgical History: Reports: Colon, Hernia, Inguinal, Other (See Below) Other GI Surgeries/Procedures: colectomy. cystoscopy Female Surgical History: Reports: Hysterectomy Musculoskeletal Surgical History: Reports: Hip Replacement, Knee Replacement Social & Family History - Family History Family Medical History: Noncontributory - Tobacco Use Smoking Status *Q: Never Smoker - Caffeine Use Caffeine Use: Reports: Coffee ED ROS GENERAL - Review of Systems Review Of Systems: See Below Constitutional: Reports: No Symptoms HEENT: Reports: Other (R sided orbital pain/swelling) Respiratory: Reports: No Symptoms Cardiovascular: Reports: No Symptoms Endocrine: Reports: No Symptoms GI/Abdominal: Reports: No Symptoms : Reports: No Symptoms Musculoskeletal: Reports: No Symptoms Skin: Reports: No Symptoms Neurological: Reports: No Symptoms Psychiatric: Reports: No Symptoms Hematologic/Lymphatic: Reports: No Symptoms Immunologic: Reports: No Symptoms ED EXAM, GENERAL - Physical Exam Exam: See Below Exam Limited By: No Limitations General Appearance: Alert, WD/WN, No Apparent Distress Eye Exam: Bilateral Eye: EOMI, Normal Fundi, Normal Inspection, PERRL Throat/Mouth: Normal Lips, Normal Oropharynx, Normal Voice, No Airway Compromise Head: Other (edema/hematoma surrounding R orbit. No obvious crepitus noted.) Neck: Normal Inspection, Supple, Non-Tender, Full Range of Motion Respiratory/Chest: No Respiratory Distress, Lungs Clear, Normal Breath Sounds, No Accessory Muscle Use, Chest Non-Tender Cardiovascular: Normal Peripheral Pulses, Regular Rate, Rhythm, No Edema, No Murmur Peripheral Pulses: 4+: Radial (R) GI/Abdominal: Soft, Non-Tender, No Organomegaly, No Distention, No Mass (Female) Exam: Deferred Rectal (Female) Exam: Deferred Back Exam: Normal Inspection, Full Range of Motion Extremities: Normal Inspection, Normal Range of Motion, Non-Tender, No Pedal Edema, Normal Capillary Refill Neurological: Alert, Oriented, CN II-XII Intact, Normal Cognition, No Motor/Sensory Deficits Psychiatric: Normal Affect, Normal Mood Skin Exam: Warm, Dry, Intact, Normal Color, No Rash Lymphatic: No Adenopathy Course - Vital Signs Last Recorded V/S: Last Vital Signs Temp 36.6 C 04/29/20 14:25 Pulse 84 04/29/20 14:25 Resp 16 04/29/20 14:25 BP 157/60 H 04/29/20 14:25 Pulse Ox 96 04/29/20 14:25 - Orders/Labs/Meds Orders: Active Orders 24 hr Category Date Time Status Head wo Cont [CT] Stat Exams 04/29/20 14:37 Taken Max Facial Sinus wo Cont [CT] Stat Exams 04/29/20 14:38 Taken COMPREHENSIVE METABOLIC PN,CMP [CHEM] Stat Lab 04/29/20 15:08 Received Sodium Chloride 0.9% [Saline Flush] Med 04/29/20 14:58 Active 10 ml FLUSH ASDIRECTED PRN Peripheral IV Insertion Adult [OM.PC] Routine Oth 04/29/20 14:59 Ordered Medication Orders Sodium Chloride (Saline Flush) 10 ml FLUSH ASDIRECTED PRN PRN Reason: Keep Vein Open Labs: Laboratory Tests 04/29/20 04/29/20 Range/Units 15:08 15:08 WBC 7.2 (4.0-10.0) x10^3/uL RBC 3.74 L (4.00-5.50) x10^6/uL Hgb 12.0 D (12.0-16.0) g/dL Hct 35.3 (33.0-47.0) % MCV 94.4 H (78.0-93.0) fL MCH 32.1 H (26.0-32.0) pg MCHC 34.0 (32.0-36.0) g/dL RDW Coeff of Sampson 14.9 (10.0-15.0) % Plt Count 197 (130-400) x10^3/uL Neut % (Auto) 78.6 (50.0-80.0) % Lymph % (Auto) 11.2 L (25.0-50.0) % Mitchell % (Auto) 7.9 (2.0-11.0) % Eos % (Auto) 2.0 (0.0-4.0) % Baso % (Auto) 0.3 (0.2-1.2) % PT 10.5 (9.5-12.3) SEC INR 1.0 L (2.0-3.5) Meds: Medications Generic Name Dose Route Start Last Admin Trade Name Adam PRN Reason Stop Dose Admin Sodium Chloride 10 ml 04/29/20 14:58 Saline Flush FLUSH ASDIRECTED PRN Keep Vein Open - Radiology Interpretation Free Text/Narrative:: Subdural bleed noted on CT Departure - Departure Time of Disposition: 15:36 Disposition: DC/Tfer to [facility] 02 Clinical Impression: Subdural hematoma - Discharge Information Forms: ED Department Discharge Sepsis Event Note (ED) - Evaluation Sepsis Screening Result: No Definite Risk - Focused Exam Vital Signs: Vital Signs Temp Pulse Resp BP Pulse Ox 04/29/20 14:25 36.6 C 84 16 157/60 H 96 - Problem List Review Problem List Initiated/Reviewed/Updated: Yes - My Orders Last 24 Hours: My Active Orders 04/29/20 14:37 Head wo Cont [CT] Stat 04/29/20 14:38 Max Facial Sinus wo Cont [CT] Stat 04/29/20 14:58 Sodium Chloride 0.9% [Saline Flush] 10 ml FLUSH ASDIRECTED PRN 04/29/20 14:59 Peripheral IV Insertion Adult [OM.PC] Routine 04/29/20 15:08 COMPREHENSIVE METABOLIC PN,CMP [CHEM] Stat - Assessment/Plan Last 24 Hours: My Active Orders 04/29/20 14:37 Head wo Cont [CT] Stat 04/29/20 14:38 Max Facial Sinus wo Cont [CT] Stat 04/29/20 14:58 Sodium Chloride 0.9% [Saline Flush] 10 ml FLUSH ASDIRECTED PRN 04/29/20 14:59 Peripheral IV Insertion Adult [OM.PC] Routine 04/29/20 15:08 COMPREHENSIVE METABOLIC PN,CMP [CHEM] Stat Plan: Pt. will be transferred [facility]. She will be transported by [facility] ground ambulance. Spoke with Dr. Garces who accepts patient in Transfer. Awaiting bed number. Discussed findings with patient and daughter, Dilia was notified.
--- NOTE | 2020-04-29 15:32 | CT ---
[id number] CT/CT Head WO IV EXAM: CT Head WO IV CLINICAL DATA: TRAUMA COMPARISON: NO PREVIOUS SIMILAR EXAM IS AVAILABLE FOR COMPARISON. FINDINGS: There is a 1 cm right frontal cortical hemorrhagic contusion. There is a bilateral wide right frontal acute subdural hemorrhage Report called at time of dictation No other abnormalities are seen except for soft tissue swelling IMPRESSION: Hemorrhagic cortical contusion and ipsilateral right side subdural hematoma Sahil Rankin MD 04/29/20 1532 Thank you for allowing us to participate in the care of your patient.
[2020-04-29 15:35] LABS: ANION GAP 11.5 mmol/L (10-20)
--- NOTE | 2020-04-29 15:35 | CT ---
[id number] CT/CT Facial Bones WO IV Exam: CT Facial Bones WO IV Clinical Data: TRAUMA COMPARISON: NO PREVIOUS SIMILAR EXAM IS AVAILABLE FINDINGS: There is no facial fracture There is right frontal soft tissue swelling. There is intracranial hemorrhage There is no orbital emphysema Degenerative changes of the cervical spine and both shoulders are seen IMPRESSION: NO ACUTE FACIAL FRACTURE Sahil Rankin MD 04/29/20 0894 Thank you for allowing us to participate in the care of your patient.
[2020-04-29 20:36] VITALS: BP 132/88; PULSE 76
== END 2020-04-29 16:05 | disposition short-term general hospital (02) ==
LOC: VM.ED 14:22
DX: S06.5X0A Traumatic subdural hemorrhage without loss of consciousness, initial encounter (principal); S05.11XA Contusion of eyeball and orbital tissues, right eye, initial encounter; I10 Essential (primary) hypertension; E66.9 Obesity, unspecified; Z68.34 Body mass index [BMI] 34.0-34.9, adult; F32.9 Major depressive disorder, single episode, unspecified; Z79.899 Other long term (current) drug therapy; Z88.6 Allergy status to analgesic agent; W19.XXXA Unspecified fall, initial encounter
CPT/HCPCS: 36415; 70450; 70486; 80053; 85025; 85610; 99284; 99285-25

== ENCOUNTER 2020-05-02 12:45 | Inpatient (IN) | payer MEDICARE, OTHER ==
--- NOTE | 2020-05-02 18:27 | HP ---
Admit to the swing bed unit at [facility]. CHIEF COMPLAINT: Fall. HISTORY OF PRESENT ILLNESS: This is an 89-year-old female who fell in her assisted living apartment on 04/29/2020. The patient states that her walker "gave out." The patient fell to the right side, striking her head on the ground. The patient was seen in a local ER where she was found to have a subdural hematoma. She was then transferred to [facility] in [place]. The patient remembers the fall. She has developed significant periorbital ecchymosis to the right eye. The patient continues to have pain along the right side of the head. The patient was evaluated by Neurosurgery and Trauma services while in [place], no intervention was warranted. The patient remained hemodynamically stable while she was in [place]. The patient was then transferred here for further rehabilitation. PAST MEDICAL HISTORY: 1. Depression. 2. Hypertension. 3. IBS. 4. Obesity. 5. Osteoarthritis. PAST SURGICAL HISTORY: 1. Cataract surgery. 2. Colectomy. 3. Repair of hernia. 4. MIRZA and BSO. 5. Tonsillectomy. 6. Bilateral knee arthroplasty. FAMILY HISTORY: The patient's father of leukemia at age 51. The patient's mother at age 91 of CHF complications. The patient has three maternal aunts, all of whom have had colon cancer. ALLERGIES: Aspirin, which causes stomach upset. MEDICATIONS: 1. Sertraline 150 mg 1 tablet p.o. daily. 2. Wellbutrin 75 mg 1 tablet p.o. daily. 3. Lasix 20 mg 1 tablet p.o. daily. 4. Trazodone 100 mg 1 tablet p.o. daily. 5. Folic acid 1 mg 1 tablet p.o. daily. 6. Sanctura 20 mg 1 tablet p.o. daily. 7. Senna Plus 1 tablet p.o. daily. 8. Calcium 600 mg 1 tablet p.o. daily. 9. Acetaminophen 325 mg 1 tablet every 4 hours as needed. LABORATORY WORK: None. IMAGING STUDIES: None on this admission. REVIEW OF SYSTEMS: Constitutional: negative Skin: bruising to right side of face Respiratory: negative Cardiovascular: negative Abdomen: negative Neurological: negative PHYSICAL EXAM: General: Patient is alert, cooperative, no acute distress Skin: Intact; mild right side facial swelling with bruising Respiratory: lungs are clear, but diminished Cardiovascular: RRR, no murmur Abdomen: BS normoactive x4, non tender Neurological: alert, oriented x4 ASSESSMENT: 1. Subdural hematoma. 2. Fall. 3. Weakness. 4. Deconditioning. 5. Depression. 6. Hypertension. 7. Irritable bowel syndrome. 8. Osteoarthritis. 9. Urinary incontinence. PLAN: The patient will be admitted to the swing bed unit at [facility]. We will consult Physical and Occupational Therapy for their services. Case Management will also be consulted for discharge planning. Continue home medications the same without any changes. The patient is a code 2. The patient does wish to be transferred to a higher level of care should the need arise. I anticipate length of stay of 5 to 7 days. This patient was seen and examined by me as an [facility] provider. TB: 05/02/2020 15:17:12 MODL: 05/02/2020 18:19:24 /[id number] MTDD
[2020-05-02] MEDS: traZODone 50 MG Tab PO SCH (21:19)
[2020-05-02] MEDS: Trospium 20 MG Tab PO SCH (21:19)
[2020-05-02] MEDS: levETIRAcetam 500 MG Tab PO SCH (21:19)
[2020-05-02] MEDS: Polyethylene Glycol 3350 Powder 17 GM Packet PO SCH (21:20)
[2020-05-02] MEDS: Acetaminophen 325 MG Tab PO PRN (21:26)
[2020-05-03] MEDS: Furosemide 20 MG Tab PO SCH (08:15)
[2020-05-03] MEDS: Acetaminophen 325 MG Tab PO PRN ×2 (08:15→20:58)
[2020-05-03] MEDS: Sertraline 50 MG Tab PO SCH (08:15)
[2020-05-03] MEDS: Calcium Carbonate/Vitamin D3 1250 MG-200 Unit Tab PO SCH (08:15)
[2020-05-03] MEDS: levETIRAcetam 500 MG Tab PO SCH ×2 (08:15→20:50)
[2020-05-03] MEDS: Polyethylene Glycol 3350 Powder 17 GM Packet PO SCH ×2 (08:15→20:50)
[2020-05-03] MEDS: Folic Acid 1 MG Tab PO SCH (08:15)
[2020-05-03] MEDS: traZODone 50 MG Tab PO SCH (20:49)
[2020-05-03] MEDS: Trospium 20 MG Tab PO SCH (20:49)
[2020-05-04] MEDS: Furosemide 20 MG Tab PO SCH (08:45)
[2020-05-04] MEDS: Calcium Carbonate/Vitamin D3 1250 MG-200 Unit Tab PO SCH (08:45)
[2020-05-04] MEDS: Polyethylene Glycol 3350 Powder 17 GM Packet PO SCH ×2 (08:45→20:17)
[2020-05-04] MEDS: Sertraline 50 MG Tab PO SCH (08:45)
[2020-05-04] MEDS: Folic Acid 1 MG Tab PO SCH (08:45)
[2020-05-04] MEDS: Acetaminophen 325 MG Tab PO PRN (20:17)
[2020-05-04] MEDS: traZODone 50 MG Tab PO SCH (20:17)
[2020-05-04] MEDS: Trospium 20 MG Tab PO SCH (20:17)
[2020-05-05] MEDS: Calcium Carbonate/Vitamin D3 1250 MG-200 Unit Tab PO SCH (08:39)
[2020-05-05] MEDS: Sertraline 50 MG Tab PO SCH (08:39)
[2020-05-05] MEDS: Polyethylene Glycol 3350 Powder 17 GM Packet PO SCH ×2 (08:40→19:40)
[2020-05-05] MEDS: Folic Acid 1 MG Tab PO SCH (08:40)
[2020-05-05] MEDS: Furosemide 20 MG Tab PO SCH (08:40)
[2020-05-05] MEDS: Trospium 20 MG Tab PO SCH (19:39)
[2020-05-05] MEDS: traZODone 50 MG Tab PO SCH (19:39)
[2020-05-05] MEDS: Acetaminophen 325 MG Tab PO PRN (19:39)
[2020-05-06] MEDS: Calcium Carbonate/Vitamin D3 1250 MG-200 Unit Tab PO SCH (08:04)
[2020-05-06] MEDS: Folic Acid 1 MG Tab PO SCH (08:04)
[2020-05-06] MEDS: Acetaminophen 325 MG Tab PO PRN (08:04)
[2020-05-06] MEDS: Furosemide 20 MG Tab PO SCH (08:04)
[2020-05-06] MEDS: Sertraline 50 MG Tab PO SCH (08:04)
[2020-05-06] MEDS: Polyethylene Glycol 3350 Powder 17 GM Packet PO SCH ×2 (08:05→20:47)
[2020-05-06] MEDS: Trospium 20 MG Tab PO SCH (20:47)
[2020-05-06] MEDS: traZODone 50 MG Tab PO SCH (20:47)
[2020-05-07] MEDS: Sertraline 50 MG Tab PO SCH (08:11)
[2020-05-07] MEDS: Furosemide 20 MG Tab PO SCH (08:11)
[2020-05-07] MEDS: Calcium Carbonate/Vitamin D3 1250 MG-200 Unit Tab PO SCH (08:11)
[2020-05-07] MEDS: Folic Acid 1 MG Tab PO SCH (08:12)
[2020-05-07] MEDS: Polyethylene Glycol 3350 Powder 17 GM Packet PO SCH ×2 (08:12→20:12)
[2020-05-07] MEDS: Trospium 20 MG Tab PO SCH (20:12)
[2020-05-07] MEDS: traZODone 50 MG Tab PO SCH (20:12)
[2020-05-08] MEDS: Folic Acid 1 MG Tab PO SCH (08:02)
[2020-05-08] MEDS: Furosemide 20 MG Tab PO SCH (08:02)
[2020-05-08] MEDS: Sertraline 50 MG Tab PO SCH (08:02)
[2020-05-08] MEDS: Polyethylene Glycol 3350 Powder 17 GM Packet PO SCH ×2 (08:02→20:01)
[2020-05-08] MEDS: Calcium Carbonate/Vitamin D3 1250 MG-200 Unit Tab PO SCH (08:02)
[2020-05-08] MEDS: Trospium 20 MG Tab PO SCH (20:02)
[2020-05-08] MEDS: traZODone 50 MG Tab PO SCH (20:02)
[2020-05-09] MEDS: Polyethylene Glycol 3350 Powder 17 GM Packet PO SCH ×2 (08:00→20:37)
[2020-05-09] MEDS: Furosemide 20 MG Tab PO SCH (08:01)
[2020-05-09] MEDS: Calcium Carbonate/Vitamin D3 1250 MG-200 Unit Tab PO SCH (08:01)
[2020-05-09] MEDS: Folic Acid 1 MG Tab PO SCH (08:01)
[2020-05-09] MEDS: Sertraline 50 MG Tab PO SCH (08:01)
[2020-05-09] MEDS: Trospium 20 MG Tab PO SCH (20:36)
[2020-05-09] MEDS: traZODone 50 MG Tab PO SCH (20:36)
[2020-05-09] MEDS: Acetaminophen 325 MG Tab PO PRN (20:39)
[2020-05-10] MEDS: Calcium Carbonate/Vitamin D3 1250 MG-200 Unit Tab PO SCH (09:59)
[2020-05-10] MEDS: Furosemide 20 MG Tab PO SCH (09:59)
[2020-05-10] MEDS: Polyethylene Glycol 3350 Powder 17 GM Packet PO SCH ×2 (09:59→20:17)
[2020-05-10] MEDS: Sertraline 50 MG Tab PO SCH (09:59)
[2020-05-10] MEDS: Folic Acid 1 MG Tab PO SCH (09:59)
[2020-05-10] MEDS: traZODone 50 MG Tab PO SCH (20:18)
[2020-05-10] MEDS: Trospium 20 MG Tab PO SCH (20:19)
[2020-05-11] MEDS: Sertraline 50 MG Tab PO SCH (09:30)
[2020-05-11] MEDS: Furosemide 20 MG Tab PO SCH (09:30)
[2020-05-11] MEDS: Calcium Carbonate/Vitamin D3 1250 MG-200 Unit Tab PO SCH (09:30)
[2020-05-11] MEDS: Folic Acid 1 MG Tab PO SCH (09:30)
[2020-05-11] MEDS: Polyethylene Glycol 3350 Powder 17 GM Packet PO SCH (09:30)
[2020-05-11] MEDS: Trospium 20 MG Tab PO SCH (20:14)
[2020-05-11] MEDS: traZODone 50 MG Tab PO SCH (20:14)
[2020-05-11] MEDS: Acetaminophen 325 MG Tab PO PRN (20:16)
[2020-05-12] MEDS: Furosemide 20 MG Tab PO SCH (08:26)
[2020-05-12] MEDS: Calcium Carbonate/Vitamin D3 1250 MG-200 Unit Tab PO SCH (08:26)
[2020-05-12] MEDS: Polyethylene Glycol 3350 Powder 17 GM Packet PO SCH (08:26)
[2020-05-12] MEDS: Folic Acid 1 MG Tab PO SCH (08:26)
[2020-05-12] MEDS: Sertraline 50 MG Tab PO SCH (08:27)
[2020-05-12] MEDS: Trospium 20 MG Tab PO SCH (19:47)
[2020-05-12] MEDS: traZODone 50 MG Tab PO SCH (19:47)
[2020-05-12] MEDS: Acetaminophen 325 MG Tab PO PRN (19:50)
[2020-05-13] MEDS: Sertraline 50 MG Tab PO SCH (08:24)
[2020-05-13] MEDS: Folic Acid 1 MG Tab PO SCH (08:24)
[2020-05-13] MEDS: Calcium Carbonate/Vitamin D3 1250 MG-200 Unit Tab PO SCH (08:24)
[2020-05-13] MEDS: Polyethylene Glycol 3350 Powder 17 GM Packet PO SCH (08:24)
[2020-05-13] MEDS: Furosemide 20 MG Tab PO SCH (08:24)
[2020-05-13] MEDS: Trospium 20 MG Tab PO SCH (19:56)
[2020-05-13] MEDS: traZODone 50 MG Tab PO SCH (19:57)
[2020-05-13] MEDS: Acetaminophen 325 MG Tab PO PRN (21:45)
[2020-05-14] MEDS: Calcium Carbonate/Vitamin D3 1250 MG-200 Unit Tab PO SCH (07:56)
[2020-05-14] MEDS: Furosemide 20 MG Tab PO SCH (07:56)
[2020-05-14] MEDS: Folic Acid 1 MG Tab PO SCH (07:56)
[2020-05-14] MEDS: Sertraline 50 MG Tab PO SCH (07:56)
[2020-05-14] MEDS: Polyethylene Glycol 3350 Powder 17 GM Packet PO SCH (07:56)
[2020-05-14] MEDS: Trospium 20 MG Tab PO SCH (20:22)
[2020-05-14] MEDS: traZODone 50 MG Tab PO SCH (20:22)
[2020-05-14] MEDS: Acetaminophen 325 MG Tab PO PRN (20:22)
[2020-05-15] MEDS: Acetaminophen 325 MG Tab PO PRN ×2 (08:07→20:28)
[2020-05-15] MEDS: Furosemide 20 MG Tab PO SCH (08:07)
[2020-05-15] MEDS: Sertraline 50 MG Tab PO SCH (08:07)
[2020-05-15] MEDS: Polyethylene Glycol 3350 Powder 17 GM Packet PO SCH (08:08)
[2020-05-15] MEDS: Folic Acid 1 MG Tab PO SCH (08:08)
[2020-05-15] MEDS: Calcium Carbonate/Vitamin D3 1250 MG-200 Unit Tab PO SCH (08:08)
[2020-05-15] MEDS: Trospium 20 MG Tab PO SCH (20:27)
[2020-05-15] MEDS: traZODone 50 MG Tab PO SCH (20:28)
[2020-05-16] MEDS: Sertraline 50 MG Tab PO SCH (08:59)
[2020-05-16] MEDS: Calcium Carbonate/Vitamin D3 1250 MG-200 Unit Tab PO SCH (08:59)
[2020-05-16] MEDS: Folic Acid 1 MG Tab PO SCH (09:00)
[2020-05-16] MEDS: Furosemide 20 MG Tab PO SCH (09:00)
[2020-05-16] MEDS: Polyethylene Glycol 3350 Powder 17 GM Packet PO SCH (09:03)
[2020-05-16] MEDS: Trospium 20 MG Tab PO SCH (20:07)
[2020-05-16] MEDS: Acetaminophen 325 MG Tab PO PRN (20:08)
[2020-05-16] MEDS: traZODone 50 MG Tab PO SCH (20:08)
[2020-05-17] MEDS: Sertraline 50 MG Tab PO SCH (08:58)
[2020-05-17] MEDS: Polyethylene Glycol 3350 Powder 17 GM Packet PO SCH (08:58)
[2020-05-17] MEDS: Furosemide 20 MG Tab PO SCH (08:58)
[2020-05-17] MEDS: Calcium Carbonate/Vitamin D3 1250 MG-200 Unit Tab PO SCH (08:58)
[2020-05-17] MEDS: Folic Acid 1 MG Tab PO SCH (08:58)
[2020-05-17] MEDS ORDERED: Nitrofurantoin Monohydrate/Macrocrystalline 100 MG Cap PO SCH (20:30)
[2020-05-17] MEDS: traZODone 50 MG Tab PO SCH (21:17)
[2020-05-17] MEDS: Trospium 20 MG Tab PO SCH (21:17)
[2020-05-17] MEDS: Acetaminophen 325 MG Tab PO PRN (21:17)
[2020-05-17] MEDS: Ciprofloxacin 250 MG Tab PO SCH (22:19)
[2020-05-18] MEDS: Sertraline 50 MG Tab PO SCH (08:37)
[2020-05-18] MEDS: Polyethylene Glycol 3350 Powder 17 GM Packet PO SCH (08:37)
[2020-05-18] MEDS: Folic Acid 1 MG Tab PO SCH (08:38)
[2020-05-18] MEDS: Furosemide 20 MG Tab PO SCH (08:38)
[2020-05-18] MEDS: Ciprofloxacin 250 MG Tab PO SCH ×2 (08:38→19:57)
[2020-05-18] MEDS: Calcium Carbonate/Vitamin D3 1250 MG-200 Unit Tab PO SCH (08:38)
[2020-05-18] MEDS: Trospium 20 MG Tab PO SCH (19:57)
[2020-05-18] MEDS: Acetaminophen 325 MG Tab PO PRN (19:57)
[2020-05-18] MEDS: traZODone 50 MG Tab PO SCH (19:57)
[2020-05-19] MEDS: Polyethylene Glycol 3350 Powder 17 GM Packet PO SCH (08:28)
[2020-05-19] MEDS: Sertraline 50 MG Tab PO SCH (08:28)
[2020-05-19] MEDS: Calcium Carbonate/Vitamin D3 1250 MG-200 Unit Tab PO SCH (08:28)
[2020-05-19] MEDS: Ciprofloxacin 250 MG Tab PO SCH ×2 (08:28→20:04)
[2020-05-19] MEDS: Furosemide 20 MG Tab PO SCH (08:28)
[2020-05-19] MEDS: Folic Acid 1 MG Tab PO SCH (08:29)
[2020-05-19] MEDS: Acetaminophen 325 MG Tab PO PRN (20:03)
[2020-05-19] MEDS: Trospium 20 MG Tab PO SCH (20:03)
[2020-05-19] MEDS: traZODone 50 MG Tab PO SCH (20:04)
[2020-05-20] MEDS: Polyethylene Glycol 3350 Powder 17 GM Packet PO SCH (08:17)
[2020-05-20] MEDS: Sertraline 50 MG Tab PO SCH (08:17)
[2020-05-20] MEDS: Calcium Carbonate/Vitamin D3 1250 MG-200 Unit Tab PO SCH (08:17)
[2020-05-20] MEDS: Ciprofloxacin 250 MG Tab PO SCH ×2 (08:18→20:07)
[2020-05-20] MEDS: Furosemide 20 MG Tab PO SCH (08:18)
[2020-05-20] MEDS: Folic Acid 1 MG Tab PO SCH (08:18)
[2020-05-20] MEDS: Trospium 20 MG Tab PO SCH (20:07)
[2020-05-20] MEDS: traZODone 50 MG Tab PO SCH (20:07)
[2020-05-20] MEDS: Acetaminophen 325 MG Tab PO PRN (20:07)
[2020-05-21] MEDS: Furosemide 20 MG Tab PO SCH (08:29)
[2020-05-21] MEDS: Folic Acid 1 MG Tab PO SCH (08:29)
[2020-05-21] MEDS: Sertraline 50 MG Tab PO SCH (08:29)
[2020-05-21] MEDS: Ciprofloxacin 250 MG Tab PO SCH ×2 (08:29→20:16)
[2020-05-21] MEDS: Polyethylene Glycol 3350 Powder 17 GM Packet PO SCH (08:30)
[2020-05-21] MEDS: Calcium Carbonate/Vitamin D3 1250 MG-200 Unit Tab PO SCH (09:14)
[2020-05-21] MEDS: Acetaminophen 325 MG Tab PO PRN (20:15)
[2020-05-21] MEDS: Trospium 20 MG Tab PO SCH (20:16)
[2020-05-21] MEDS: traZODone 50 MG Tab PO SCH (20:16)
[2020-05-22] MEDS: Sertraline 50 MG Tab PO SCH (09:10)
[2020-05-22] MEDS: Calcium Carbonate/Vitamin D3 1250 MG-200 Unit Tab PO SCH (09:10)
[2020-05-22] MEDS: Furosemide 20 MG Tab PO SCH (09:10)
[2020-05-22] MEDS: Polyethylene Glycol 3350 Powder 17 GM Packet PO SCH (09:10)
[2020-05-22] MEDS: Folic Acid 1 MG Tab PO SCH (09:10)
[2020-05-22] MEDS: Ciprofloxacin 250 MG Tab PO SCH ×2 (09:11→20:27)
[2020-05-22] MEDS: traZODone 50 MG Tab PO SCH (20:27)
[2020-05-22] MEDS: Trospium 20 MG Tab PO SCH (20:27)
[2020-05-23] MEDS: Sertraline 50 MG Tab PO SCH (08:33)
[2020-05-23] MEDS: Calcium Carbonate/Vitamin D3 1250 MG-200 Unit Tab PO SCH (08:33)
[2020-05-23] MEDS: Folic Acid 1 MG Tab PO SCH (08:33)
[2020-05-23] MEDS: Ciprofloxacin 250 MG Tab PO SCH ×2 (08:34→19:44)
[2020-05-23] MEDS: Polyethylene Glycol 3350 Powder 17 GM Packet PO SCH (08:34)
[2020-05-23] MEDS: Furosemide 20 MG Tab PO SCH (08:34)
[2020-05-23] MEDS: traZODone 50 MG Tab PO SCH (19:44)
[2020-05-23] MEDS: Trospium 20 MG Tab PO SCH (19:44)
[2020-05-24 05:41] VITALS: BP 111/92; PULSE 65
[2020-05-24] MEDS: Furosemide 20 MG Tab PO SCH (07:52)
[2020-05-24] MEDS: Polyethylene Glycol 3350 Powder 17 GM Packet PO SCH (07:52)
[2020-05-24] MEDS: Folic Acid 1 MG Tab PO SCH (07:52)
[2020-05-24] MEDS: Calcium Carbonate/Vitamin D3 1250 MG-200 Unit Tab PO SCH (07:52)
[2020-05-24] MEDS: Sertraline 50 MG Tab PO SCH (07:53)
[2020-05-24] MEDS: Ciprofloxacin 250 MG Tab PO SCH (07:53)
--- NOTE | 2020-05-24 11:48 | DISCH ---
DATE OF ADMISSION: 05/02/2020 DATE OF DISCHARGE: 05/24/2020 DISPOSITION: The patient is being discharged to the [facility] from [facility]. HISTORY OF PRESENT ILLNESS: An 89-year-old female patient was admitted to the swing bed unit at [facility] on 05/02/2020 for further rehabilitation after she sustained a fall at home. The patient subsequently sustained a subdural hematoma on the right side. The patient was seen at [facility] in [place] and was transferred to swing bed for weakness and deconditioning. BRIEF HOSPITAL COURSE: The patient remained hemodynamically stable. She was able to participate with physical therapy. The patient did not have any additional pain. She does have some neurological deficit that is chronic. She has not had any focal neurological deficits. The patient remained afebrile. Pain was under good control. DISCHARGE LABORATORY WORK: None. DISCHARGE IMAGING STUDIES: None. DISCHARGE MEDICATIONS: 1. Acetaminophen 650 mg 1 tablet p.o. every 4 hours as needed. 2. Wellbutrin 75 mg 1 tablet p.o. daily at bedtime. 3. Calcium carbonate/vitamin D3 one tablet p.o. daily. 4. Senna Plus 1 tablet p.o. daily. 5. Folic acid 1 mg 1 tablet p.o. daily. 6. Furosemide 20 mg 1 tablet p.o. daily. 7. MiraLAX 17 g p.o. daily. 8. Sertraline 150 mg 1 tablet p.o. daily. 9. Trazodone 100 mg 1 tablet p.o. daily at bedtime. 10.Sanctura 20 mg 1 tablet p.o. daily at bedtime. REVIEW OF SYSTEMS: Constitutional: Negative. Skin: Negative. Respiratory: Negative. Cardiovascular: Negative. Skin: Negative. Neurological: Negative. DISCHARGE PHYSICAL EXAMINATION: General Presentation: The patient is alert. The patient is cooperative. The patient does not appear to be in any acute distress. Skin: Intact, warm, and dry. Respiratory: Clear to auscultation. Cardiovascular: Regular rate and rhythm. No murmurs. Neurological: The patient is alert. CONSULTATIONS: Physical Therapy. ASSESSMENT: 1. Subdural hematoma. 2. Fall. 3. Weakness. 4. Deconditioning. 5. Depression. 6. Hypertension. 7. Irritable bowel syndrome. 8. Osteoarthritis. 9. Urinary incontinence. PLAN: The patient will be discharged home today to the assisted living facility with home health care. We will continue the medications the same. Activity will be per Physical Therapy from Home Health. Continue regular diet. The patient will follow up with Adeline Caicedo NP, in 1 week for post hospital followup. [id number] DOCUMENTATION ENCOUNTER FOR HOME HEALTH: Date of encounter: 05/24/2020 Patient's name: Eli Yusuf Patient's date of : 1930 I certify that Eli Yusuf is under my care and I had a [id number] encounter that needs a physician [id number] requirement on 05/24/2020. The encounter with the patient was in whole or in part for the following medical conditions which is the primary reason for home healthcare: Physical therapy for strengthening, balance, and gait training, usp for medication instruction/compliance. My medical findings support the need for services because of the inability to safely get to an outpatient facility for therapy due to fall risk, lack of loss of coordination and tone, balance issues, and weakness. Further, I certify that my clinical findings support that this patient is homebound. Because the patient is unable to safely ambulate distances less than 20 feet, the patient requires standby assist due to loss of balance, and the patient requires frequent rest periods due to weakness and loss of endurance, the patient requires use of assistive device, and the patient requires assistance of another person to leave the home. Certification: For Home Health Services. I certify that Eli Yusuf meets the homebound requirements with a peer source and has a need for intermittent usp, physician, and/or speech or occupational therapy services in home for the diagnosis currently outlined in the initial plan of care. The services will be continued to be monitored by myself. I will periodically review and update the plan of care as required. My signature indicates that this supplemental documentation has been incorporated in the patient's medical record. TB: 05/24/2020 09:42:05 MODL: 05/24/2020 11:39:23 /[id number]
== END 2020-05-24 10:30 | disposition home health service (06) | DRG 948 ==
LOC: VM.MS 13:40
PROVIDERS: ADMIT Nurse Practitioner Family; ATTEND Nurse Practitioner Family
DX: R53.1 Weakness (principal); S06.5X9D Traumatic subdural hemorrhage with loss of consciousness of unspecified duration, subsequent encounter; F32.9 Major depressive disorder, single episode, unspecified; I10 Essential (primary) hypertension; K58.9 Irritable bowel syndrome, unspecified; M19.90 Unspecified osteoarthritis, unspecified site; Z20.828 Contact with and (suspected) exposure to other viral communicable diseases; R32 Unspecified urinary incontinence; E66.9 Obesity, unspecified; Z98.49 Cataract extraction status, unspecified eye; Z88.6 Allergy status to analgesic agent; Z79.899 Other long term (current) drug therapy
CPT/HCPCS: 51702; 81001; 87086; 87088; 87186; 97110-GP; 97116-GP; 97129-GO; 97130-GO; 97161-GP; 97165-GO; 97530-GP; 97535-GO; A9270-GY; U0002

== ENCOUNTER 2020-05-26 16:04 | Emergency (ER) | payer MEDICARE, OTHER ==
--- NOTE | 2020-05-26 16:20 | EDM.PDOC ---
ED HPI GENERAL MEDICAL PROBLEM - General Chief Complaint: General Stated Complaint: ER Time Seen by Provider: 05/26/20 16:04 Source of Information: Reports: Patient History Limitations: Reports: No Limitations - History of Present Illness INITIAL COMMENTS - FREE TEXT/NARRATIVE: Patient comes into the emergency department via EMS for complaint of a fall. Patient lives at the [facility] and was found by staff On the bathroom floor. Patient did have a hematoma to the left side of her forehead. EMS was contacted to transport patient to the emergency department for further evaluation. Patient is unknown the length of time that she fell. She also is inconsistent with her story of the details related to falling. EMS states the patient was evaluated at 330 by nursing staff to have daily routine vital signs. Then they checked on her approximately 10 minutes later and she was on the floor in her bathroom and EMS was contacted at that time frame. care home states she has fallen 3 times in the last 2 days. She recently was hospitalized and just discharged after a brain bleed and lengthy rehabilitation. Patient denies any complaints or concerns other than a headache. Patient does recall that it is Wednesday and that she lives at the [facility]. Patient does have equal strength and states denies any other injuries or concerns at the present time. Patient Has had recent close contact with COVID19+ patient. Currently [facility] staff state that she has been asymptomatic. Onset: Sudden Headache Pain Score (Numeric/FACES): 8 - Related Data Allergies Allergy/AdvReac Type Severity Reaction Status Date / Time aspirin AdvReac Unknown Unknown Verified 05/26/20 16:37 Home Meds: Home Meds traZODone 100 mg PO BEDTIME 11/14/15 [History] Mirabegron [Myrbetriq] 25 mg PO DAILY 09/28/19 [History] Acetaminophen [Tylenol] 650 mg PO Q4HR PRN tablet 10/08/19 [Rx] Calcium Carbonate/Vitamin D3 [Calcium Carbonate/Vitamin D 1250 MG-200 Unit] 1 tab PO DAILY tablet 10/08/19 [Rx] Docusate Sodium/Sennosides [Senna Plus] 1 tab PO DAILY tablet 10/08/19 [Rx] Furosemide [Lasix] 20 mg PO DAILY tablet 10/08/19 [Rx] Sertraline [Zoloft] 150 mg PO DAILY #90 tablet 10/08/19 [Rx] Folic Acid 1 mg PO DAILY 04/29/20 [History] Trospium [Sanctura] 20 mg PO BEDTIME 04/29/20 [History] buPROPion [Wellbutrin] 75 mg PO BEDTIME 04/29/20 [History] polyethylene glycoL 3350 [MiraLAX] 17 gm PO BID 04/29/20 [History] Past Medical History HEENT History: Reports: Cataract Cardiovascular History: Reports: Hypertension Gastrointestinal History: Reports: Irritable Bowel Syndrome Genitourinary History: Reports: Other (See Below) Other Genitourinary History: overactive bladder Musculoskeletal History: Reports: Osteoarthritis Psychiatric History: Reports: Depression Endocrine/Metabolic History: Reports: Obesity/BMI 30+ - Past Surgical History HEENT Surgical History: Reports: Cataract Surgery, Tonsillectomy GI Surgical History: Reports: Colon, Hernia, Inguinal, Other (See Below) Other GI Surgeries/Procedures: colectomy. cystoscopy Female Surgical History: Reports: Hysterectomy Musculoskeletal Surgical History: Reports: Hip Replacement, Knee Replacement Social & Family History - Family History Family Medical History: Noncontributory - Caffeine Use Caffeine Use: Reports: Coffee Caffeine Use Comment: 1-2 cups ED ROS GENERAL - Review of Systems Review Of Systems: Comprehensive ROS is negative, except as noted in HPI. Constitutional: Reports: No Symptoms HEENT: Reports: No Symptoms Respiratory: Reports: No Symptoms Cardiovascular: Reports: No Symptoms Endocrine: Reports: No Symptoms GI/Abdominal: Reports: No Symptoms : Reports: No Symptoms Musculoskeletal: Reports: No Symptoms Skin: Reports: No Symptoms Neurological: Reports: No Symptoms Psychiatric: Reports: No Symptoms ED EXAM, GENERAL - Physical Exam Exam: See Below General Appearance: Alert, No Apparent Distress Eye Exam: Bilateral Eye: Corneal Abrasion, PERRL Ears: Normal External Exam, Normal Canal, Hearing Grossly Normal, Normal TMs Ear Exam: Bilateral Ear: Auricle Normal, Canal Normal, TM normal Head: Other (hematoma- left frontal scalp ) Neck: Normal Inspection, Supple, Non-Tender, Full Range of Motion Respiratory/Chest: No Respiratory Distress, Lungs Clear, No Accessory Muscle Use, Chest Non-Tender, Other (back brace in place) Cardiovascular: Normal Peripheral Pulses, Regular Rate, Rhythm, No Murmur, No Rub Extremities: Normal Inspection, Normal Range of Motion, Non-Tender, No Pedal Edema, Normal Capillary Refill Neurological: Alert, Oriented, CN II-XII Intact, Normal Cognition Psychiatric: Normal Affect, Normal Mood Skin Exam: Warm, Dry, Intact, Normal Color Course - Vital Signs Last Recorded V/S: Last Vital Signs Temp 36.8 C 05/26/20 16:10 Pulse 83 05/26/20 16:10 Resp 16 05/26/20 16:10 BP 134/80 05/26/20 16:10 Pulse Ox 97 05/26/20 16:10 Departure - Departure Time of Disposition: 17:30 Disposition: Home, Self-Care 01 Condition: Good Clinical Impression: Scalp hematoma Qualifiers: Encounter type: initial encounter Qualified Code(s): S00.03XA - Contusion of scalp, initial encounter Fall Qualifiers: Encounter type: initial encounter Qualified Code(s): W19.XXXA - Unspecified fall, initial encounter - Discharge Information *PRESCRIPTION DRUG MONITORING PROGRAM REVIEWED*: Not Applicable *COPY OF PRESCRIPTION DRUG MONITORING REPORT IN PATIENT JOSSY: Not Applicable Instructions: Fall Prevention in the Home, Adult, [id number], Facial or Scalp Contusion, [id number] Referrals: Adeline Caicedo COPPER ETCHER [Primary Care Provider] - Forms: ED Department Discharge Additional Instructions: 1. rest 2. Continue all at home medications 3. Activity and diet as tolerated 4. Can take over the counter Tylenol for any pain or discomfort 5. use ice or heat for 20 minutes at a time 3-4 rosita a day 6. Follow up with PCP if symptoms continue, return, or progress 7. Call with any questions or concerns Sepsis Event Note (ED) - Focused Exam Vital Signs: Vital Signs Temp Pulse Resp BP Pulse Ox 05/26/20 16:10 36.8 C 83 16 134/80 97 - Assessment/Plan Assessment:: 1. fall 2. Left frontal scalp hematoma Plan: 1. CT-scan completed of head results reviewed with the patient 2. Ice Applied to the head 3. Medication offered to the patient- declined any medication at this time 4. Education regarding splinting, activity, [id number] medications, and follow-up care provided. 5. All questions and concerns addressed with the patient prior to discharge
[2020-05-26 16:45] VITALS: BP 134/80; PULSE 83
--- NOTE | 2020-05-26 16:57 | CT ---
[id number] CT/CT Head WO IV EXAM: CT Head WO IV CLINICAL DATA: FALL, UNKNOWN LOC. COMPARISON STUDY: None FINDINGS: No intracranial hemorrhage, extra-axial fluid collection, mass, or acute ischemia. Generalized parenchymal atrophy with scattered areas of nonspecific white matter disease, commonly seen as sequela of chronic microvascular ischemia. Left frontal scalp hematoma without underlying calvarial fracture. Paranasal sinuses and mastoid air cells are clear. IMPRESSION: Left frontal scalp hematoma without underlying calvarial fracture. No acute intracranial findings. Michele Drew DO 05/26/20 0875 Thank you for allowing us to participate in the care of your patient.
== END 2020-05-26 17:20 | disposition home or self-care (01) ==
LOC: VM.ED 16:04
DX: S00.03XA Contusion of scalp, initial encounter (principal); S05.02XA Injury of conjunctiva and corneal abrasion without foreign body, left eye, initial encounter; S05.01XA Injury of conjunctiva and corneal abrasion without foreign body, right eye, initial encounter; I10 Essential (primary) hypertension; E66.9 Obesity, unspecified; F32.9 Major depressive disorder, single episode, unspecified; Z68.32 Body mass index [BMI] 32.0-32.9, adult; Z88.6 Allergy status to analgesic agent; Z90.710 Acquired absence of both cervix and uterus; Z90.49 Acquired absence of other specified parts of digestive tract; Z79.899 Other long term (current) drug therapy; W19.XXXA Unspecified fall, initial encounter
CPT/HCPCS: 70450; 99284-25

== ENCOUNTER 2020-07-31 21:36 | Observation (INO) | payer MEDICARE, OTHER ==
[2020-07-31 22:29] LABS: PTT,PARTIAL THROMBOPLSTIN TIME 25.4 SEC (25.6-32.8)
[2020-07-31 22:32] LABS: CHLORIDE,CL 105 mmol/L (98-107); SODIUM,NA 141 mmol/L (136-145)
[2020-07-31 22:33] LABS: ANION GAP 10.1 mmol/L (10-20)
[2020-08-01] MEDS ORDERED: Ondansetron 4 MG/2 ML SDV IV PRN (00:01)
[2020-08-01] MEDS ORDERED: Morphine 2 MG/ML SYRINGE IVPUSH PRN (00:01)
--- NOTE | 2020-08-01 01:00 | EDM.PDOC ---
ED HPI GENERAL MEDICAL PROBLEM - General Chief Complaint: Lower Extremity Injury/Pain Stated Complaint: FALL Time Seen by Provider: 07/31/20 21:36 Source of Information: Reports: Patient History Limitations: Reports: No Limitations - History of Present Illness INITIAL COMMENTS - FREE TEXT/NARRATIVE: Patient comes emergency department today from the [facility] in [facility] with complaints of an injury to her right lower extremity. Patient just prior to contacting the ambulance was at home when she was walking she tripped with her left leg fell injuring her right distal thigh. She did not hit her head. There was no loss of conscious. She has no head neck or back pain. She had no weakness dizziness lightheadedness chest pain or palpitations prior to her fall. Upon EMS arrival they noted that she had a deformity just proximal of the patella with lateral rotation of the right lower extremity. A traction splint was applied she was given Dilaudid prior to transfer. Upon arrival the patient denies any head neck or back pain. No loss of consciousness. She only complains of pain to her right distal femur but is much improved following the Dilaudid administration. She denies any paresthesias of her light lower extremity. She denies any back or pelvis pain. She denies any injury to her other extremities. No Covid exposure no Covid symptoms. Right Knee Pain Score (Numeric/FACES): 7 - Related Data Allergies Allergy/AdvReac Type Severity Reaction Status Date / Time aspirin AdvReac Unknown Unknown Verified 07/31/20 21:45 Home Meds: Home Meds traZODone 50 mg PO BEDTIME 11/14/15 [History] Calcium Carbonate/Vitamin D3 [Calcium Carbonate/Vitamin D 1250 MG-200 Unit] 1 tab PO DAILY tablet 10/08/19 [Rx] Docusate Sodium/Sennosides [Senna Plus] 1 tab PO DAILY tablet 10/08/19 [Rx] Sertraline [Zoloft] 150 mg PO DAILY #90 tablet 10/08/19 [Rx] Folic Acid 1 mg PO DAILY 04/29/20 [History] Trospium [Sanctura] 20 mg PO BEDTIME 04/29/20 [History] buPROPion [Wellbutrin] 75 mg PO BEDTIME 04/29/20 [History] polyethylene glycoL 3350 [MiraLAX] 17 gm PO DAILY 04/29/20 [History] Acetaminophen [Arthritis Pain Relief] 650 mg PO Q4H PRN 07/31/20 [History] Furosemide [Lasix] 10 mg PO DAILY 07/31/20 [History] Past Medical History HEENT History: Reports: Cataract Cardiovascular History: Reports: Hypertension Gastrointestinal History: Reports: Irritable Bowel Syndrome Genitourinary History: Reports: Other (See Below) Other Genitourinary History: overactive bladder Musculoskeletal History: Reports: Osteoarthritis Psychiatric History: Reports: Depression Endocrine/Metabolic History: Reports: Obesity/BMI 30+ - Past Surgical History HEENT Surgical History: Reports: Cataract Surgery, Tonsillectomy GI Surgical History: Reports: Colon, Hernia, Inguinal, Other (See Below) Other GI Surgeries/Procedures: colectomy. cystoscopy Female Surgical History: Reports: Hysterectomy Other Female Surgeries/Procedures: ?partial colectomy Musculoskeletal Surgical History: Reports: Hip Replacement, Knee Replacement Social & Family History - Family History Family Medical History: No Pertinent Family History - Tobacco Use Tobacco Use Status *Q: Unknown Ever Used Tobacco - Caffeine Use Caffeine Use: Reports: Coffee, Energy Drinks Caffeine Use Comment: 1-2 cups - Recreational Drug Use Recreational Drug Use: No Review of Systems - Review of Systems Review Of Systems: Comprehensive ROS is negative, except as noted in HPI. ED EXAM, GENERAL - Physical Exam Exam: See Below Exam Limited By: No Limitations General Appearance: Alert, WD/WN, No Apparent Distress Eye Exam: Bilateral Eye: EOMI, PERRL Ears: Normal External Exam, Normal Canal Nose: Normal Inspection, Normal Mucosa Throat/Mouth: Normal Inspection, Normal Lips Head: Atraumatic, Normocephalic Neck: Normal Inspection, Supple, Non-Tender, Full Range of Motion Respiratory/Chest: No Respiratory Distress, Lungs Clear, Normal Breath Sounds, No Accessory Muscle Use, Chest Non-Tender Cardiovascular: Normal Peripheral Pulses, Regular Rate, Rhythm Peripheral Pulses: 2+: Radial (L), Radial (R), Posterior Tibial (L), Posterior Tibial (R), Dorsalis Pedis (L), Dorsalis Pedis (R) GI/Abdominal: Normal Bowel Sounds, Soft, Non-Tender, Pelvis Stable (The patient's pelvis is stable although she has some tenderness to the right iliac crest on palpation.) (Female) Exam: Deferred Rectal (Female) Exam: Deferred Back Exam: Normal Inspection, Full Range of Motion. No: Paraspinal Tenderness, Vertebral Tenderness Extremities: Normal Capillary Refill. No: Normal Inspection (She has some small amount of swelling to the distal femur just proximal to the patella. The right lower extremity is in a Hare traction device. There is no breaks in the skin. The rest of the right lower extremity is atraumatic. The rest of her extremities are unremarkable as well.) Neurological: Alert, Oriented, Normal Cognition, No Motor/Sensory Deficits Psychiatric: Normal Affect, Normal Mood Skin Exam: Warm, Dry, Intact, Normal Color, No Rash Course - Vital Signs Last Recorded V/S: Last Vital Signs Temp 97.7 F 08/01/20 04:57 Pulse 70 08/01/20 04:57 Resp 18 08/01/20 04:57 BP 123/78 08/01/20 04:57 Pulse Ox 98 08/01/20 04:57 - Orders/Labs/Meds Orders: Active Orders 24 hr Category Date Time Status Admission Status [Patient Status] [ADT] Routine ADT 07/31/20 23:10 Active Medication Orders Acetaminophen (Tylenol) 650 mg PO Q4H PRN PRN Reason: Pain (Mild 1-3)/fever Last Admin: 08/01/20 15:37 Dose: 650 mg Documented by: Admin: 08/01/20 08:32 Dose: 650 mg Documented by: Admin: 08/01/20 04:59 Dose: 650 mg Documented by: ROSAMARIA Bupropion HCl (Wellbutrin) 75 mg PO BEDTIME [facility] Calcium Carbonate (Calcium Carbonate/Vitamin D 1250 Mg-200 Unit) 1 tab PO DAILY [facility] Last Admin: 08/01/20 08:33 Dose: 1 tab Documented by: SHAHID Folic Acid (Folic Acid) 1 mg PO DAILY [facility] Last Admin: 08/01/20 08:33 Dose: 1 mg Documented by: SHAHID Furosemide (Lasix) 10 mg PO DAILY [facility] Last Admin: 08/01/20 08:33 Dose: 10 mg Documented by: SHAHID Morphine Sulfate (Morphine) 2 mg IVPUSH Q2H PRN PRN Reason: Pain (severe 7-10) Ondansetron HCl (Zofran) 4 mg IV Q6H PRN PRN Reason: Nausea/Vomiting Polyethylene Glycol (Miralax) 17 gm PO DAILY [facility] Last Admin: 08/01/20 08:33 Dose: Not Given Documented by: SHAHID Senna/Docusate Sodium (Senna Plus) 1 tab PO DAILY [facility] Last Admin: 08/01/20 08:33 Dose: Not Given Documented by: SHAHID Sertraline HCl (Zoloft) 150 mg PO DAILY [facility] Last Admin: 08/01/20 08:33 Dose: 150 mg Documented by: SHAHID Trazodone HCl (Trazodone) 50 mg PO BEDTIME [facility] Trospium (Sanctura) 20 mg PO BEDTIME [facility] Labs: Laboratory Tests 07/31/20 07/31/20 07/31/20 Range/Units 22:05 22:05 22:05 WBC 8.3 (4.0-10.0) x10^3/uL RBC 3.85 L (4.00-5.50) x10^6/uL Hgb 12.1 (12.0-16.0) g/dL Hct 37.0 (33.0-47.0) % MCV 96.1 H (78.0-93.0) fL MCH 31.4 (26.0-32.0) pg MCHC 32.7 (32.0-36.0) g/dL RDW Coeff of Sampson 15.0 (10.0-15.0) % Plt Count 181 (130-400) x10^3/uL Neut % (Auto) 79.4 (50.0-80.0) % Lymph % (Auto) 10.5 L (25.0-50.0) % Collier % (Auto) 8.0 (2.0-11.0) % Eos % (Auto) 1.7 (0.0-4.0) % Baso % (Auto) 0.4 (0.2-1.2) % PT 10.7 (9.5-12.3) SEC INR 1.0 L (2.0-3.5) APTT 25.4 L (25.6-32.8) SEC Sodium 141 (136-145) mmol/L Potassium 4.1 (3.5-5.1) mmol/L Chloride 105 (98-107) mmol/L Carbon Dioxide 30 (21-32) mmol/L Anion Gap 10.1 (10-20) mmol/L BUN 26 H (7-18) mg/dL Creatinine 1.5 H (0.55-1.02) mg/dL Est Cr Clr Drug Dosing TNP Estimated GFR (MDRD) 33 Glucose 116 H (74-106) mg/dL Calcium 8.4 L (8.5-10.1) mg/dL Corrected Calcium 9.12 (8.5-10.1) mg/dL Total Bilirubin 0.4 (0.2-1.0) mg/dL AST 10 L (15-37) U/L ALT 14 (14-59) U/L Alkaline Phosphatase 146 H (46-116) U/L Total Protein 6.1 L (6.4-8.2) g/dL Albumin 3.1 L (3.4-5.0) g/dL Globulin 3.0 Albumin/Globulin Ratio 1.03 SARS CoV-2 RNA Rapid RONALD (NEGATIVE) 07/31/20 Range/Units 22:30 WBC (4.0-10.0) x10^3/uL RBC (4.00-5.50) x10^6/uL Hgb (12.0-16.0) g/dL Hct (33.0-47.0) % MCV (78.0-93.0) fL MCH (26.0-32.0) pg MCHC (32.0-36.0) g/dL RDW Coeff of Sampson (10.0-15.0) % Plt Count (130-400) x10^3/uL Neut % (Auto) (50.0-80.0) % Lymph % (Auto) (25.0-50.0) % Collier % (Auto) (2.0-11.0) % Eos % (Auto) (0.0-4.0) % Baso % (Auto) (0.2-1.2) % PT (9.5-12.3) SEC INR (2.0-3.5) APTT (25.6-32.8) SEC Sodium (136-145) mmol/L Potassium (3.5-5.1) mmol/L Chloride (98-107) mmol/L Carbon Dioxide (21-32) mmol/L Anion Gap (10-20) mmol/L BUN (7-18) mg/dL Creatinine (0.55-1.02) mg/dL Est Cr Clr Drug Dosing Estimated GFR (MDRD) Glucose (74-106) mg/dL Calcium (8.5-10.1) mg/dL Corrected Calcium (8.5-10.1) mg/dL Total Bilirubin (0.2-1.0) mg/dL AST (15-37) U/L ALT (14-59) U/L Alkaline Phosphatase (46-116) U/L Total Protein (6.4-8.2) g/dL Albumin (3.4-5.0) g/dL Globulin Albumin/Globulin Ratio SARS CoV-2 RNA Rapid RONALD Negative (NEGATIVE) Meds: Medications Generic Name Dose Route Start Last Admin Trade Name Freq PRN Reason Stop Dose Admin Acetaminophen 650 mg 08/01/20 00:01 08/01/20 15:37 Tylenol PO 650 mg Q4H PRN Administration Pain (Mild 1-3)/fever Bupropion HCl 75 mg 08/01/20 20:00 Wellbutrin PO BEDTIME [facility] Calcium Carbonate 1 tab 08/01/20 08:00 08/01/20 08:33 Calcium Carbonate/Vitamin D 1250 Mg-200 Unit PO 1 tab DAILY [facility] Administration Folic Acid 1 mg 08/01/20 08:00 08/01/20 08:33 Folic Acid PO 1 mg DAILY [facility] Administration Furosemide 10 mg 08/01/20 08:00 08/01/20 08:33 Lasix PO 10 mg DAILY [facility] Administration Morphine Sulfate 2 mg 08/01/20 00:01 Morphine IVPUSH Q2H PRN Pain (severe 7-10) Ondansetron HCl 4 mg 08/01/20 00:01 Zofran IV Q6H PRN Nausea/Vomiting Polyethylene Glycol 17 gm 08/01/20 08:00 08/01/20 08:33 Miralax PO Not Given DAILY [facility] Senna/Docusate Sodium 1 tab 08/01/20 08:00 08/01/20 08:33 Senna Plus PO Not Given DAILY [facility] Sertraline HCl 150 mg 08/01/20 08:00 08/01/20 08:33 Zoloft PO 150 mg DAILY [facility] Administration Trazodone HCl 50 mg 08/01/20 20:00 Trazodone PO BEDTIME [facility] Trospium 20 mg 08/01/20 20:00 Sanctura PO BEDTIME [facility] - Re-Assessments/Exams Free Text/Narrative Re-Assessment/Exam: 07/31/20 The patient initially denied anything for pain and is quite comfortable. X-ray of the pelvis is concerning for questionable fracture per radiology on the left lesser trochanter although this appears to be more artifact and/or nutrient channel to myself when reviewed. X-ray of the right femur shows a impacted displaced distal supracondylar transverse fracture of the distal femur. Thehare traction ice was removed and she was placed in a knee immobilizer. She had good CMS after the change in the splint. I called and talked with [facility] in [place]. They do not have any beds at this time although she was placed on a waiting list and the plan will be to place her into observation here until a bed is open at [facility] tomorrow. I discussed this case as well as the findings with the patient and her son over the phone. They are comfortable with this plan and their questions are answered. Departure - Departure Time of Disposition: 23:15 (No beds at [facility] will hold for tomorrow. ) Disposition: Refer to Observation Clinical Impression: Fracture, femur, distal Qualifiers: Encounter type: initial encounter Fracture type: closed Fracture morphology: unspecified fracture morphology Laterality: right Qualified Code(s): S72.401A - Unspecified fracture of lower end of right femur, initial encounter for closed fracture - Discharge Information Sepsis Event Note (ED) - Evaluation Sepsis Screening Result: No Definite Risk - Problem List & Annotations (1) Fracture, femur, distal SNOMED Code(s): 871588479 Code(s): S72.409A - UNSP FRACTURE OF LOWER END OF UNSP FEMUR, INIT FOR CLOS FX Status: Acute Current Visit: Yes Qualifiers: Encounter type: initial encounter Fracture type: closed Fracture morphology: unspecified fracture morphology Laterality: right Qualified Code(s): S72.401A - Unspecified fracture of lower end of right femur, initial encounter for closed fracture - My Orders Last 24 Hours: My Active Orders 07/31/20 23:10 Admission Status [Patient Status] [ADT] Routine - Assessment/Plan Admission H&P: Please use this note as an admission H&P Last 24 Hours: My Active Orders 07/31/20 23:10 Admission Status [Patient Status] [ADT] Routine Assessment:: A/P Admit observation until a bed is available at [facility]. 1: Distal right femur closed supracodylar fracture. Knee immobilizer. Morphine for pain. CMS checks. Zofran PRN nausea. Will place on Clear liquids at this time as possible surgery tomorrow. VTE: SCS and TEDs no coag as possible surgery tomorrow. Sepsis no concerns of sepsis at this time. Code 2: Compression defib although no intubation.
[2020-08-01 04:58] VITALS: BP 123/78; PULSE 70
[2020-08-01] MEDS: Acetaminophen 325 MG Tab PO PRN ×3 (04:59→15:37)
--- NOTE | 2020-08-01 07:56 | CR ---
[id number] RAD/RAD Femur Right 2V EXAM: 3 VIEWS RIGHT FEMUR. INDICATION: FALL, PELVIS AND RIGHT DISTAL FEMUR PAIN/DEFORMITY COMPARISON: None. 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 No evidence of hardware failure or loosening. Postsurgical changes following total right knee arthroplasty. There is a obliquely oriented fracture involving the distal right femoral metaphysis extending along the border of the proximal aspect of the femoral component of the knee prosthesis. The prosthesis remains in articulatory alignment. The fracture is impacted and demonstrates lateral displacement of approximately 1 cm. IMPRESSION: 1. Acute periprosthetic distal right femoral fracture as described above. Michele Drew DO 08/01/20 0755 Thank you for allowing us to participate in the care of your patient.
--- NOTE | 2020-08-01 07:58 | CR ---
[id number] RAD/RAD Pelvis 1-2V EXAM: SINGLE VIEW PELVIS. INDICATION: FALL, PELVIS AND RIGHT DISTAL FEMUR PAIN/DEFORMITY COMPARISON: August 04, 2019. DISCUSSION: Surgical changes following bilateral hip arthroplasties. No evidence of acute hardware failure or loosening. No acute fracture or dislocation is identified. Mild degenerative changes of the pubic symphysis as well as the SI joints bilaterally. Additionally there are moderate degenerative changes of the visualized lumbar spine. IMPRESSION: 1. No acute osseous abnormalities. Michele Drew DO 08/01/20 0756 Thank you for allowing us to participate in the care of your patient.
[2020-08-01] MEDS ORDERED: Furosemide 20 MG Tab PO SCH (08:00)
[2020-08-01] MEDS ORDERED: Polyethylene Glycol 3350 Powder 17 GM Packet PO SCH (08:00)
[2020-08-01] MEDS ORDERED: Calcium Carbonate/Vitamin D3 1250 MG-200 Unit Tab PO SCH (08:00)
[2020-08-01] MEDS ORDERED: Sertraline 50 MG Tab PO SCH (08:00)
[2020-08-01] MEDS ORDERED: Folic Acid 1 MG Tab PO SCH (08:00)
--- NOTE | 2020-08-01 08:23 | CR ---
[id number] RAD/RAD Femur Left 2V EXAM: 2 VIEWS LEFT FEMUR. INDICATION: ? FRACTURE LEFT LESSER TROCHANTER ON PELVIS XRAY. COMPARISON: None. DISCUSSION: No fracture, dislocation or other acute osseous abnormality. Postsurgical changes following total left hip and knee arthroplasty. No evidence of acute hardware failure or loosening. The prostheses remain in articulatory alignment. IMPRESSION: 1. No acute fractures identified. Michele Drew DO 08/01/20 0822 Thank you for allowing us to participate in the care of your patient.
--- NOTE | 2020-08-01 11:15 | PCM.DCSUM1 ---
Discharge Summary - Hospital Course HPI Initial Comments: Patient comes emergency department today from the [facility] in [place] with complaints of an injury to her right lower extremity. Patient just prior to contacting the ambulance was at home when she was walking she tripped with her left leg fell injuring her right distal thigh. She did not hit her head. There was no loss of conscious. She has no head neck or back pain. She had no weakness dizziness lightheadedness chest pain or palpitations prior to her fall. Upon EMS arrival they noted that she had a deformity just proximal of the patella with lateral rotation of the right lower extremity. A traction splint was applied she was given Dilaudid prior to transfer. Upon arrival the patient denies any head neck or back pain. No loss of consciousness. She only complains of pain to her right distal femur but is much improved following the Dilaudid administration. She denies any paresthesias of her light lower extremity. She denies any back or pelvis pain. She denies any injury to her other extremities. No Covid exposure no Covid symptoms. Diagnosis: Stroke: No - Discharge Data Discharge Date: 08/01/20 Discharge Disposition: DC/Tfer to Acute Hospital 02 Condition: Good - Referral to Home Health Primary Care Physician: Adeline Caicedo NP - Discharge Diagnosis/Problem(s) (1) Fracture, femur, distal SNOMED Code(s): 091255672 ICD Code: S72.409A - UNSP FRACTURE OF LOWER END OF UNSP FEMUR, INIT FOR CLOS FX Status: Acute Current Visit: Yes Qualifiers: Encounter type: initial encounter Fracture type: closed Fracture morphology: unspecified fracture morphology Laterality: right Qualified Code(s): S72.401A - Unspecified fracture of lower end of right femur, initial encounter for closed fracture - Patient Summary/Data Hospital Course: The patient was admitted to the hospital under observation for a mechanical fall at home with the finding of a distal supracondylar right distal femur fracture. She was placed on clear liquid diet. She had morphine as needed for pain. She had a knee immobilizer in place. Initially there were no beds at [facility] in [place] so we were going to hold onto her until a bed was opened in [place]. The next day [facility] is unsure of when they are going to be able to take this patient. I discussed this case with the patient and her son and they would like to look for other places where it may be able to be repaired in a more timely fashion. I talked with [facility] who does not have any beds they reported. I then talked with Dr. Disla at [facility] in [place] [facility] and concerns were relayed to him. He accepted the patient in transfer at this time. I discussed the plan of care with the patient and her son. They are comfortable with this plan and their questions are answered. She was able to eat today as they will not have surgery for the next 24 hrs. She will be transported and transfered to [facility] for further care management. - Discharge Plan *PRESCRIPTION DRUG MONITORING PROGRAM REVIEWED*: Not Applicable *COPY OF PRESCRIPTION DRUG MONITORING REPORT IN PATIENT JOSSY: Not Applicable Home Medications: Home Meds traZODone 50 mg PO BEDTIME 11/14/15 [History] Calcium Carbonate/Vitamin D3 [Calcium Carbonate/Vitamin D 1250 MG-200 Unit] 1 tab PO DAILY tablet 10/08/19 [Rx] Docusate Sodium/Sennosides [Senna Plus] 1 tab PO DAILY tablet 10/08/19 [Rx] Sertraline [Zoloft] 150 mg PO DAILY #90 tablet 10/08/19 [Rx] Folic Acid 1 mg PO DAILY 04/29/20 [History] Trospium [Sanctura] 20 mg PO BEDTIME 04/29/20 [History] buPROPion [Wellbutrin] 75 mg PO BEDTIME 04/29/20 [History] polyethylene glycoL 3350 [MiraLAX] 17 gm PO DAILY 04/29/20 [History] Acetaminophen [Arthritis Pain Relief] 650 mg PO Q4H PRN 07/31/20 [History] Furosemide [Lasix] 10 mg PO DAILY 07/31/20 [History] Forms: ED Department Discharge, Interfacility Transfer EMTALA Referrals: Adeline Caicedo FENDER REPAIRER [Primary Care Provider] - - Discharge Summary/Plan Comment DC Time >30 min.: Yes - General Info Date of Service: 08/01/20 Admission Dx/Problem (Free Text: Distal Femur Fracture mechanical fall. Subjective Update: Patient is slept well during the night. She really has no complaints. She has been able to get up to the bathroom with assist of 1 without any difficulty. She denies any paresthesias. Her pain is well controlled. - Review of Systems General: Reports: No Symptoms HEENT: Reports: No Symptoms Pulmonary: Reports: No Symptoms Cardiovascular: Reports: No Symptoms Gastrointestinal: Reports: No Symptoms Genitourinary: Reports: No Symptoms Musculoskeletal: Reports: No Symptoms Skin: Reports: No Symptoms Neurological: Reports: No Symptoms Psychiatric: Reports: No Symptoms - Patient Data Vitals - Most Recent: Last Vital Signs Temp 97.7 F 08/01/20 04:57 Pulse 70 08/01/20 04:57 Resp 18 08/01/20 04:57 BP 123/78 08/01/20 04:57 Pulse Ox 98 08/01/20 04:57 Weight - Most Recent: 161 lb 12.8 oz I&O - Last 24 hours: Intake & Output 07/31/20 08/01/20 08/01/20 22:59 06:59 14:59 Intake Total 100 120 Balance 100 120 Lab Results - Last 24 hrs: Laboratory Results - last 24 hr 07/31/20 07/31/20 07/31/20 Range/Units 22:05 22:05 22:05 WBC 8.3 (4.0-10.0) x10^3/uL RBC 3.85 L (4.00-5.50) x10^6/uL Hgb 12.1 (12.0-16.0) g/dL Hct 37.0 (33.0-47.0) % MCV 96.1 H (78.0-93.0) fL MCH 31.4 (26.0-32.0) pg MCHC 32.7 (32.0-36.0) g/dL RDW Coeff of Sampson 15.0 (10.0-15.0) % Plt Count 181 (130-400) x10^3/uL Neut % (Auto) 79.4 (50.0-80.0) % Lymph % (Auto) 10.5 L (25.0-50.0) % Hudspeth % (Auto) 8.0 (2.0-11.0) % Eos % (Auto) 1.7 (0.0-4.0) % Baso % (Auto) 0.4 (0.2-1.2) % PT 10.7 (9.5-12.3) SEC INR 1.0 L (2.0-3.5) APTT 25.4 L (25.6-32.8) SEC Sodium 141 (136-145) mmol/L Potassium 4.1 (3.5-5.1) mmol/L Chloride 105 (98-107) mmol/L Carbon Dioxide 30 (21-32) mmol/L Anion Gap 10.1 (10-20) mmol/L BUN 26 H (7-18) mg/dL Creatinine 1.5 H (0.55-1.02) mg/dL Est Cr Clr Drug Dosing TNP Estimated GFR (MDRD) 33 Glucose 116 H (74-106) mg/dL Calcium 8.4 L (8.5-10.1) mg/dL Corrected Calcium 9.12 (8.5-10.1) mg/dL Total Bilirubin 0.4 (0.2-1.0) mg/dL AST 10 L (15-37) U/L ALT 14 (14-59) U/L Alkaline Phosphatase 146 H (46-116) U/L Total Protein 6.1 L (6.4-8.2) g/dL Albumin 3.1 L (3.4-5.0) g/dL Globulin 3.0 Albumin/Globulin Ratio 1.03 SARS CoV-2 RNA Rapid RONALD (NEGATIVE) 07/31/20 Range/Units 22:30 WBC (4.0-10.0) x10^3/uL RBC (4.00-5.50) x10^6/uL Hgb (12.0-16.0) g/dL Hct (33.0-47.0) % MCV (78.0-93.0) fL MCH (26.0-32.0) pg MCHC (32.0-36.0) g/dL RDW Coeff of Sampson (10.0-15.0) % Plt Count (130-400) x10^3/uL Neut % (Auto) (50.0-80.0) % Lymph % (Auto) (25.0-50.0) % Hudspeth % (Auto) (2.0-11.0) % Eos % (Auto) (0.0-4.0) % Baso % (Auto) (0.2-1.2) % PT (9.5-12.3) SEC INR (2.0-3.5) APTT (25.6-32.8) SEC Sodium (136-145) mmol/L Potassium (3.5-5.1) mmol/L Chloride (98-107) mmol/L Carbon Dioxide (21-32) mmol/L Anion Gap (10-20) mmol/L BUN (7-18) mg/dL Creatinine (0.55-1.02) mg/dL Est Cr Clr Drug Dosing Estimated GFR (MDRD) Glucose (74-106) mg/dL Calcium (8.5-10.1) mg/dL Corrected Calcium (8.5-10.1) mg/dL Total Bilirubin (0.2-1.0) mg/dL AST (15-37) U/L ALT (14-59) U/L Alkaline Phosphatase (46-116) U/L Total Protein (6.4-8.2) g/dL Albumin (3.4-5.0) g/dL Globulin Albumin/Globulin Ratio SARS CoV-2 RNA Rapid RONALD Negative (NEGATIVE) Med Orders - Current: Current Medications Acetaminophen (Tylenol) 650 mg PO Q4H PRN PRN Reason: Pain (Mild 1-3)/fever Last Admin: 08/01/20 08:32 Dose: 650 mg Documented by: Bupropion HCl (Wellbutrin) 75 mg PO BEDTIME [facility] Calcium Carbonate (Calcium Carbonate/Vitamin D 1250 Mg-200 Unit) 1 tab PO DAILY [facility] Last Admin: 08/01/20 08:33 Dose: 1 tab Documented by: Folic Acid (Folic Acid) 1 mg PO DAILY [facility] Last Admin: 08/01/20 08:33 Dose: 1 mg Documented by: Furosemide (Lasix) 10 mg PO DAILY [facility] Last Admin: 08/01/20 08:33 Dose: 10 mg Documented by: Morphine Sulfate (Morphine) 2 mg IVPUSH Q2H PRN PRN Reason: Pain (severe 7-10) Ondansetron HCl (Zofran) 4 mg IV Q6H PRN PRN Reason: Nausea/Vomiting Polyethylene Glycol (Miralax) 17 gm PO DAILY [facility] Last Admin: 08/01/20 08:33 Dose: Not Given Documented by: Senna/Docusate Sodium (Senna Plus) 1 tab PO DAILY [facility] Last Admin: 08/01/20 08:33 Dose: Not Given Documented by: Sertraline HCl (Zoloft) 150 mg PO DAILY [facility] Last Admin: 08/01/20 08:33 Dose: 150 mg Documented by: Trazodone HCl (Trazodone) 50 mg PO BEDTIME [facility] Trospium (Sanctura) 20 mg PO BEDTIME [facility] - Exam General: Reports: Alert, Oriented HEENT: Reports: Pupils Equal, Pupils Reactive Neck: Reports: Supple Lungs: Reports: Clear to Auscultation, Normal Respiratory Effort Cardiovascular: Reports: Regular Rate, Regular Rhythm GI/Abdominal Exam: Normal Bowel Sounds, Soft, Non-Tender (Female) Exam: Deferred Rectal (Female) Exam: Deferred Extremities: Normal Range of Motion. No: Normal Inspection (She has normal CMS to her right lower extremity. The knee immobilizer in place. There is a small amount of swelling to the distal femur otherwise unremarkable.) Skin: Reports: Warm, Dry, Intact Neurological: Reports: No New Focal Deficit Psy/Mental Status: Reports: Alert, Normal Affect, Normal Mood
[2020-08-01] MEDS ORDERED: traZODone 50 MG Tab PO SCH (20:00)
[2020-08-01] MEDS ORDERED: Trospium 20 MG Tab PO SCH (20:00)
== END 2020-08-01 16:15 | disposition short-term general hospital (02) ==
LOC: VM.ED 21:36 → VM.MS 23:15
PROVIDERS: ADMIT Nurse Practitioner Family; ATTEND Nurse Practitioner Family
DX: S72.451A Displaced supracondylar fracture without intracondylar extension of lower end of right femur, initial encounter for closed fracture (principal); I10 Essential (primary) hypertension; E66.9 Obesity, unspecified; Z88.8 Allergy status to other drugs, medicaments and biological substances; Z79.899 Other long term (current) drug therapy; Z98.890 Other specified postprocedural states; Z20.828 Contact with and (suspected) exposure to other viral communicable diseases; W19.XXXA Unspecified fall, initial encounter; Y93.9 Activity, unspecified; Y92.009 Unspecified place in unspecified non-institutional (private) residence as the place of occurrence of the external cause; Z68.30 Body mass index [BMI] 30.0-30.9, adult
CPT/HCPCS: 36415; 72170; 73552; 80053; 85025; 85610; 85730; 96374; 96375; 99217; 99220; 99285; A9270; G0378; J2270; J2405; U0002